=== PATIENT | male | born 1965 | race Caucasian/White ===

== ENCOUNTER 2017-12-28 02:37 | Emergency (ER) | payer SELFPAY ==
[2017-12-28 02:48] VITALS: BP 128/98
--- NOTE | 2017-12-28 03:10 | EDM.PDOC ---
ED HPI GENERAL MEDICAL PROBLEM - General Chief Complaint: General Stated Complaint: ALCOHOL CLEARANCE Time Seen by Provider: 12/28/17 03:00 Source of Information: Reports: Patient, Police - History of Present Illness INITIAL COMMENTS - FREE TEXT/NARRATIVE: Juan is a 52 year old male who presents to the ED with police after he was suspected to be suicidal. A phone call to the suicidal hotline apparently went through on his cell phone, although he reports he does not have his cell phone in his possession. Police later confirmed that the patient did not have possession of his cell phone. Patient is unsure why the police woke him from sleep and brought him here. He reports he was "passed out" when the police broke down his door and told him he had to come to the ED. Police report that they were dispatched to an unknown location. They report they tried to ping the location of the cellphone but it brought them initially to a field and then to other houses with the lights off. They are not positive of who the call came from etc. Patient denies any suicidal or homicidal thoughts or ideation. Reports he has been drinking since early afternoon but he has not been suicidal. He does report he is an alcoholic. He reports on occasion he will call the suicidal hotline late at night when there is no one else to talk to, but he did not call them tonight as he hasn't had his cellphone. He reports he feels fine and has no complaints. Onset: Today Associated Symptoms: Reports: No Other Symptoms Generalized Pain Score (Numeric/FACES): 5 - Related Data Allergies Allergy/AdvReac Type Severity Reaction Status Date / Time ciprofloxacin [From Cipro] AdvReac Intermediate Stomach Verified 12/28/17 02:51 Upset ciprofloxacin HCl AdvReac Intermediate Stomach Verified 12/28/17 02:51 [From Cipro] Upset Home Meds: Home Meds Lisinopril [Prinivil] 20 tab PO DAILY 07/31/15 [History] Past Medical History HEENT History: Reports: Impaired Vision Cardiovascular History: Reports: Hypertension Musculoskeletal History: Reports: Other (See Below) Other Musculoskeletal History: LEFT KNEE PAIN Psychiatric History: Reports: Addiction Other Psychiatric History: daily ETOH - Past Surgical History Musculoskeletal Surgical History: Reports: Other (See Below) Social & Family History - Family History Family Medical History: Unobtainable Cardiac: Reports: Hypertension Endocrine/Metabolic: Reports: Diabetes, type II - Tobacco Use Smoking Status *Q: Unknown Ever Smoked Years of Tobacco use: 35 Packs/Tins Daily: 0.5 - Alcohol Use Days Per Week of Alcohol Use: 7 Number of Drinks Per Day: 12 Total Drinks Per Week: 84 - Recreational Drug Use Recreational Drug Use: No ED ROS GENERAL - Review of Systems Review Of Systems: ROS reveals no pertinent complaints other than HPI. ED EXAM, GENERAL - Physical Exam Exam: See Below Exam Limited By: No Limitations General Appearance: Alert, WD/WN, No Apparent Distress Eye Exam: Bilateral Eye: EOMI, Normal Fundi, Normal Inspection, PERRL Ears: Normal External Exam, Normal Canal, Hearing Grossly Normal, Normal TMs Nose: Normal Inspection, Normal Mucosa, No Blood Throat/Mouth: Normal Inspection, Normal Lips, Normal Teeth, Normal Gums, Normal Oropharynx, Normal Voice, No Airway Compromise Head: Atraumatic, Normocephalic Neck: Normal Inspection, Supple, Non-Tender, Full Range of Motion Respiratory/Chest: No Respiratory Distress, Lungs Clear, Normal Breath Sounds, No Accessory Muscle Use, Chest Non-Tender Cardiovascular: Normal Peripheral Pulses, Regular Rate, Rhythm, No Edema, No Gallop, No JVD, No Murmur, No Rub GI/Abdominal: Normal Bowel Sounds, Soft, Non-Tender, No Organomegaly, No Distention, No Abnormal Bruit, No Mass Extremities: Normal Inspection, Normal Range of Motion, Non-Tender, Normal Capillary Refill, No Pedal Edema Neurological: Alert, Oriented, CN II-XII Intact, Normal Cognition, Normal Gait, Normal Reflexes, No Motor/Sensory Deficits Psychiatric: Normal Affect, Normal Mood Skin Exam: Warm, Dry, Intact, Normal Color, No Rash Course - Vital Signs Last Recorded V/S: Last Vital Signs Temp 97.2 F 12/28/17 02:39 Pulse 118 H 12/28/17 02:39 Resp 18 12/28/17 02:39 BP 128/98 H 12/28/17 02:39 Pulse Ox 98 12/28/17 02:39 - Orders/Labs/Meds Orders: Active Orders 24 hr Category Date Time Status Patient Status Manage Transfer [TRANSFER] Routine ADT 12/28/17 03:20 Ordered Resuscitation Status Routine Resus Stat 12/28/17 03:20 Ordered Labs: Laboratory Tests 03/01/1212/28/17 12/28/17 Range/Units 02:54 02:54 03:00 WBC 9.2 (5.0-10.0) 10^3/uL RBC 4.82 (4.50-6.00) 10^6/uL Hgb 15.2 (14.0-18.0) g/dL Hct 43.5 (40.0-54.0) % MCV 90.2 (82.0-94.0) fL MCH 31.5 (27.0-32.0) pg MCHC 34.9 (33.0-38.0) g/dL RDW Coeff of Cory 12.2 (11.0-15.0) % Plt Count 283 (150-400) 10^3/uL Neut % (Auto) 53.9 (35-85) % Lymph % (Auto) 28.9 (10-55) % Brooke % (Auto) 8.0 (0-16) % Eos % (Auto) 8.8 H (0-5) % Baso % (Auto) 0.4 (0-3) % Neut # (Auto) 4.97 (1.80-7.00) 10^3/uL Lymph # (Auto) 2.66 (1.00-4.80) 10^3/uL Brooke # (Auto) 0.74 (0.00-0.80) 10^3/uL Eos # (Auto) 0.81 H (0.00-0.45) 10^3/uL Baso # (Auto) 0.04 10^3/uL Sodium (136-145) mEq/L Potassium (3.5-5.0) mEq/L Chloride (98-106) mEq/L Carbon Dioxide (21-32) mmol/L BUN (7-18) mg/dL Creatinine (0.7-1.3) mg/dL Est Cr Clr Drug Dosing mL/min Estimated GFR (MDRD) (>=60) mL/min Glucose (75-99) mg/dL Calcium (8.4-10.1) mg/dL Total Bilirubin (0.0-1.0) mg/dL AST (15-37) U/L ALT (12-78) U/L Alkaline Phosphatase (46-116) U/L Total Protein (6.4-8.2) g/dL Albumin (3.4-5.0) g/dL Urine Color Light yellow (YELLOW) Urine Appearance Clear (CLEAR) Urine pH 5.0 (4.5-8.0) Ur Specific Hines <= 1.005 (1.003-1.020) Urine Protein Negative (NEGATIVE) mg/dL Urine Glucose (UA) Negative (NEGATIVE) mg/dL Urine Ketones Negative (NEGATIVE) mg/dL Urine Occult Blood Negative (NEGATIVE) Urine Nitrite Negative (NEGATIVE) Urine Bilirubin Negative (NEGATIVE) Urine Urobilinogen 0.2 (0.2-1.0) EU/dL Ur Leukocyte Esterase Negative (NEGATIVE) Urine RBC Not seen (0-5) /HPF Urine WBC 0-5 (0-5) /HPF Ur Squamous Epith Cells Occasional H (NOT SEEN) /HPF Urine Opiates Screen Negative (NEGATIVE) Ur Oxycodone Screen Negative (NEGATIVE) Urine Methadone Screen Negative (NEGATIVE) Ur Barbiturates Screen Negative (NEGATIVE) U Tricyclic Antidepress Negative (NEGATIVE) Ur Phencyclidine Scrn Negative (NEGATIVE) Ur Amphetamine Screen Negative (NEGATIVE) U Methamphetamines Scrn Negative (NEGATIVE) Urine MDMA Screen Negative (NEGATIVE) U Benzodiazepines Scrn Negative (NEGATIVE) Urine Cocaine Screen Negative (NEGATIVE) U Marijuana (THC) Screen Negative (NEGATIVE) 12/28/17 Range/Units 03:00 WBC (5.0-10.0) 10^3/uL RBC (4.50-6.00) 10^6/uL Hgb (14.0-18.0) g/dL Hct (40.0-54.0) % MCV (82.0-94.0) fL MCH (27.0-32.0) pg MCHC (33.0-38.0) g/dL RDW Coeff of Cory (11.0-15.0) % Plt Count (150-400) 10^3/uL Neut % (Auto) (35-85) % Lymph % (Auto) (10-55) % Brooke % (Auto) (0-16) % Eos % (Auto) (0-5) % Baso % (Auto) (0-3) % Neut # (Auto) (1.80-7.00) 10^3/uL Lymph # (Auto) (1.00-4.80) 10^3/uL Brooke # (Auto) (0.00-0.80) 10^3/uL Eos # (Auto) (0.00-0.45) 10^3/uL Baso # (Auto) 10^3/uL Sodium 137 (136-145) mEq/L Potassium 3.9 (3.5-5.0) mEq/L Chloride 98 (98-106) mEq/L Carbon Dioxide 27 (21-32) mmol/L BUN 22 H D (7-18) mg/dL Creatinine 0.9 (0.7-1.3) mg/dL Est Cr Clr Drug Dosing 91.83 mL/min Estimated GFR (MDRD) > 60 (>=60) mL/min Glucose 106 H D (75-99) mg/dL Calcium 8.8 (8.4-10.1) mg/dL Total Bilirubin 0.5 (0.0-1.0) mg/dL AST 26 (15-37) U/L ALT 45 (12-78) U/L Alkaline Phosphatase 84 (46-116) U/L Total Protein 7.9 (6.4-8.2) g/dL Albumin 4.0 (3.4-5.0) g/dL Urine Color (YELLOW) Urine Appearance (CLEAR) Urine pH (4.5-8.0) Ur Specific Hines (1.003-1.020) Urine Protein (NEGATIVE) mg/dL Urine Glucose (UA) (NEGATIVE) mg/dL Urine Ketones (NEGATIVE) mg/dL Urine Occult Blood (NEGATIVE) Urine Nitrite (NEGATIVE) Urine Bilirubin (NEGATIVE) Urine Urobilinogen (0.2-1.0) EU/dL Ur Leukocyte Esterase (NEGATIVE) Urine RBC (0-5) /HPF Urine WBC (0-5) /HPF Ur Squamous Epith Cells (NOT SEEN) /HPF Urine Opiates Screen (NEGATIVE) Ur Oxycodone Screen (NEGATIVE) Urine Methadone Screen (NEGATIVE) Ur Barbiturates Screen (NEGATIVE) U Tricyclic Antidepress (NEGATIVE) Ur Phencyclidine Scrn (NEGATIVE) Ur Amphetamine Screen (NEGATIVE) U Methamphetamines Scrn (NEGATIVE) Urine MDMA Screen (NEGATIVE) U Benzodiazepines Scrn (NEGATIVE) Urine Cocaine Screen (NEGATIVE) U Marijuana (THC) Screen (NEGATIVE) - Re-Assessments/Exams Free Text/Narrative Re-Assessment/Exam: Discussed labs with patient. Discussed with police that I do not feel they brought the right individual home. He is not actively suicidal. Recommended to them that they go track down the phone to ensure safety of the individual who has possession of Juan's phone. Patient will be kept in extended ED for observation through the night. He does not understand why he has to, but discussed that for his safety we will keep him and give him some IVF. Departure - Departure Time of Disposition: 08:50 Disposition: Home, Self-Care 01 Condition: Good Clinical Impression: Alcohol abuse with intoxication, uncomplicated - Discharge Information Instructions: Alcohol Use Disorder, Substance Use Disorder, Alcohol Intoxication, [id number] Referrals: Provider,Unknown [Primary Care Provider] - Forms: ED Department Discharge Additional Instructions: Call suicidal hotline if any feelings or thoughts of suicide. Safety plan in effect. Push fluids Avoid alcohol as much as possible Recommend counseling or AA Follow up with PCP - My Orders Last 24 Hours: My Active Orders 12/28/17 03:20 Patient Status Manage Transfer [TRANSFER] Routine Resuscitation Status Routine - Assessment/Plan Last 24 Hours: My Active Orders 12/28/17 03:20 Patient Status Manage Transfer [TRANSFER] Routine Resuscitation Status Routine
[2017-12-28 03:20] LABS: CHLORIDE,CL 98 mEq/L (98-106); SODIUM,NA 137 mEq/L (136-145)
== END 2017-12-28 09:05 | disposition home or self-care (01) ==
LOC: CC.ED 02:37
DX: F10.120 Alcohol abuse with intoxication, uncomplicated (principal); I10 Essential (primary) hypertension; E11.9 Type 2 diabetes mellitus without complications; Z88.1 Allergy status to other antibiotic agents; Z79.899 Other long term (current) drug therapy
CPT/HCPCS: 36415; 80053; 80305; 81001; 85025; 99284

== ENCOUNTER 2018-07-30 15:57 | Emergency (ER) | payer SELFPAY ==
[2018-07-30 16:50] LABS: CHLORIDE,CL 96 mEq/L (98-106); SODIUM,NA 133 mEq/L (136-145)
[2018-07-30] MEDS ORDERED: Sodium Chloride 0.9% 1,000 ML IV ONE (16:55)
--- NOTE | 2018-07-30 16:56 | EDM.PDOC ---
ED HPI GENERAL MEDICAL PROBLEM - General Chief Complaint: General Stated Complaint: bilateral foot rash, headache, high blood pressure Time Seen by Provider: 07/30/18 16:28 - History of Present Illness INITIAL COMMENTS - FREE TEXT/NARRATIVE: Juan is a 53 year old male who presents to the ED with c/o neck pain, headache, and elevated blood pressure. He is significantly intoxicated. He reports he has had neck pain for a number of years. Reports he has had a headache for the past 2 weeks. Does report this will stay on blood pressure medications but he does not take them. He is noncompliant. He reports he has been struggling significantly with depression and anxiety following the of one of his best friends a few months ago. He also reports he has been struggling as his girlfriend has been hospitalized and he is unable to be in contact with her. Overall he has numerous complaints all of which are chronic origin. Patient is verbal and does not understand why he is here. He did make an appointment to be seen in the clinic but was very intoxicated and then sent to the emergency room. Onset: Unknown/Unsure Associated Symptoms: Reports: Chest Pain, Headaches. Denies: Confusion, Cough, cough w sputum, Diaphoresis, Fever/Chills, Loss of Appetite, Malaise, Nausea/ Vomiting, Rash, Seizure, Shortness of Breath, Syncope, Weakness Feet Pain Score (Numeric/FACES): 9 - Related Data Allergies Allergy/AdvReac Type Severity Reaction Status Date / Time ciprofloxacin [From Cipro] AdvReac Intermediate Stomach Verified 07/30/18 16:09 Upset ciprofloxacin HCl AdvReac Intermediate Stomach Verified 07/30/18 16:09 [From Cipro] Upset Home Meds: Home Meds FLUoxetine HCl [Prozac] 20 mg PO DAILY #30 capsule 07/30/18 [Rx] Lisinopril 20 mg PO DAILY #90 tablet 07/30/18 [Rx] Past Medical History HEENT History: Reports: Impaired Vision Cardiovascular History: Reports: Hypertension Musculoskeletal History: Reports: Other (See Below) Other Musculoskeletal History: LEFT KNEE PAIN Psychiatric History: Reports: Addiction Other Psychiatric History: daily ETOH - Past Surgical History Musculoskeletal Surgical History: Reports: Other (See Below) Social & Family History - Family History Family Medical History: Unobtainable Cardiac: Reports: Hypertension Endocrine/Metabolic: Reports: Diabetes, type II - Tobacco Use Smoking Status *Q: Current Every Day Smoker Years of Tobacco use: 40 Packs/Tins Daily: 0.5 - Caffeine Use Caffeine Use: Reports: Soda - Alcohol Use Days Per Week of Alcohol Use: 7 Number of Drinks Per Day: 30 Total Drinks Per Week: 210 - Recreational Drug Use Recreational Drug Use: No ED ROS GENERAL - Review of Systems Review Of Systems: ROS reveals no pertinent complaints other than HPI. Constitutional: Denies: Fever, Chills, Weakness, Fatigue HEENT: Reports: No Symptoms Respiratory: Reports: No Symptoms Cardiovascular: Reports: Chest Pain, Blood Pressure Problem. Denies: Dyspnea on Exertion, Edema, Lightheadedness, Palpitations, Syncope Endocrine: Reports: No Symptoms GI/Abdominal: Denies: Abdominal Pain, Black Stool, Bloody Stool, Constipation, Diarrhea, Decreased Appetite, Nausea, Vomiting : Reports: No Symptoms Musculoskeletal: Reports: Neck Pain Skin: Reports: Wound (Bilateral feet) Neurological: Reports: Other (Intoxication) Psychiatric: Reports: Anxiety, Depression. Denies: Suicidal Ideation ED EXAM, GENERAL - Physical Exam Exam: See Below Exam Limited By: Intoxication General Appearance: Alert, WD/WN, No Apparent Distress Eye Exam: Bilateral Eye: EOMI, Nystagmus, PERRL Ears: Normal External Exam, Normal Canal, Hearing Grossly Normal, Normal TMs Nose: Normal Inspection, Normal Mucosa, No Blood Throat/Mouth: Normal Inspection, Normal Lips, Normal Teeth, Normal Gums, Normal Oropharynx, Normal Voice, No Airway Compromise Head: Atraumatic, Normocephalic Neck: Normal Inspection, Supple, Non-Tender, Full Range of Motion. No: Tender Lateral, Tender Midline Respiratory/Chest: No Respiratory Distress, Lungs Clear, Normal Breath Sounds, No Accessory Muscle Use, Chest Non-Tender Cardiovascular: Normal Peripheral Pulses, Regular Rate, Rhythm, No Edema, No Gallop, No JVD, No Murmur, No Rub Peripheral Pulses: 2+: Dorsalis Pedis (L), Dorsalis Pedis (R) GI/Abdominal: Normal Bowel Sounds, Soft, Non-Tender, No Organomegaly, No Distention, No Abnormal Bruit, No Mass Extremities: Normal Range of Motion, Non-Tender, No Pedal Edema, Normal Capillary Refill, Other (Wounds to bilateral feet patient reports these are chronic) Neurological: Alert, Oriented, CN II-XII Intact Psychiatric: Anxious, Depressed Mood, Tearful Skin Exam: Wound/Incision (Bilateral feet). No: Increased Warmth Course - Vital Signs Last Recorded V/S: Last Vital Signs Temp 97 F 07/30/18 16:04 Pulse 98 07/30/18 17:51 Resp 18 07/30/18 16:04 BP 146/80 H 07/30/18 17:51 Pulse Ox 99 07/30/18 16:04 - Orders/Labs/Meds Orders: Active Orders 24 hr Category Date Time Status Cervical Spine 2V or 3V [CR] Stat Exams 07/30/18 16:27 Taken Lisinopril [Prinivil] Med 07/30/18 17:00 Active 20 mg PO DAILY Medication Orders Lisinopril (Prinivil) 20 mg PO DAILY [place] Last Admin: 07/30/18 17:05 Dose: 20 mg Labs: Laboratory Tests 07/30/18 07/30/18 Range/Units 16:28 16:28 WBC 9.4 (5.0-10.0) 10^3/uL RBC 4.28 L (4.50-6.00) 10^6/uL Hgb 14.0 (14.0-18.0) g/dL Hct 40.3 (40.0-54.0) % MCV 94.2 H (82.0-94.0) fL MCH 32.7 H (27.0-32.0) pg MCHC 34.7 (33.0-38.0) g/dL RDW Coeff of Cory 12.3 (11.0-15.0) % Plt Count 353 (150-400) 10^3/uL Neut % (Auto) 65.8 (35-85) % Lymph % (Auto) 21.0 (10-55) % [place] % (Auto) 10.2 (0-16) % Eos % (Auto) 2.3 (0-5) % Baso % (Auto) 0.7 (0-3) % Neut # (Auto) 6.20 (1.80-7.00) 10^3/uL Lymph # (Auto) 1.98 (1.00-4.80) 10^3/uL [place] # (Auto) 0.96 H (0.00-0.80) 10^3/uL Eos # (Auto) 0.22 (0.00-0.45) 10^3/uL Baso # (Auto) 0.07 10^3/uL Sodium 133 L (136-145) mEq/L Potassium 3.9 (3.5-5.0) mEq/L Chloride 96 L (98-106) mEq/L Carbon Dioxide 30 (21-32) mmol/L BUN 9 D (7-18) mg/dL Creatinine 0.9 (0.7-1.3) mg/dL Est Cr Clr Drug Dosing 93.83 mL/min Estimated GFR (MDRD) > 60 (>=60) mL/min Glucose 118 H (75-99) mg/dL Calcium 9.4 (8.4-10.1) mg/dL Total Bilirubin 0.6 (0.0-1.0) mg/dL AST 37 (15-37) U/L ALT 76 (12-78) U/L Alkaline Phosphatase 74 (46-116) U/L Lactate Dehydrogenase 146 (100-190) U/L Creatine Kinase 54 (35-232) U/L Troponin I < 0.017 (0.00-0.06) ng/mL C-Reactive Protein < 0.2 L (0.2-0.8) mg/dL Total Protein 8.2 (6.4-8.2) g/dL Albumin 4.0 (3.4-5.0) g/dL Meds: Medications Generic Name Dose Route Start Last Admin Trade Name Freq PRN Reason Stop Dose Admin Lisinopril 20 mg 07/30/18 17:00 07/30/18 17:05 Prinivil PO 20 mg DAILY [place] Administration Discontinued Medications Generic Name Dose Route Start Last Admin Trade Name Freq PRN Reason Stop Dose Admin Sodium Chloride 1,000 mls @ 999 mls/hr 07/30/18 16:55 07/30/18 17:05 Normal Saline IV 07/30/18 17:55 999 mls/hr .BOLUS ONE Administration - Re-Assessments/Exams Free Text/Narrative Re-Assessment/Exam: Discussed normal lab results with patient. Sodium is slightly low as well as chloride. We'll give one later bolus of normal saline. Long discussion had with patient regarding depression and anxiety. He does report he wishes to be helped with this and treated with medication. I did discuss with him that this would be a medication he would have to take daily and I would take some time for him to notice a difference in his mood. Discussed with patient the importance of taking his blood pressure medications. He has been noncompliant with all this in the past. I did discuss with patient possible transfer for inpatient alcohol and psych treatment to which patient declined immediately. He does report he has been through treatment numerous times in the past for his alcohol addiction. He does report that since the of his best friend he has been struggling much more. He does report that he used to see a psychiatrist about 10 years ago and is interested in starting this again. Discussed with patient that there is a psychologist locally that we could get patient set up with. He does report he is interested in this. C-spine x-ray does reveal degenerative disc disease. Recommend patient follow- up in clinic with primary care provider regarding this. Departure - Departure Time of Disposition: 17:33 Disposition: Home, Self-Care 01 Condition: Good Clinical Impression: Anxiety, Alcohol abuse with intoxication, uncomplicated Hypertension Qualifiers: Hypertension type: essential hypertension Qualified Code(s): I10 - Essential ( primary) hypertension Depression Qualifiers: Depression Type: major depressive disorder Major depression recurrence: recurrent Active/Remission status: currently active Major depression episode severity: severe Psychotic features: without psychotic features Qualified Code(s ): F33.2 - Major depressive disorder, recurrent severe without psychotic features - Discharge Information *PRESCRIPTION DRUG MONITORING PROGRAM REVIEWED*: Not Applicable *COPY OF PRESCRIPTION DRUG MONITORING REPORT IN PATIENT KELL: Not Applicable Prescriptions: FLUoxetine HCl [Prozac] 20 mg PO DAILY #30 capsule Lisinopril 20 mg PO DAILY #90 tablet Instructions: Major Depressive Disorder, Adult, Hypertension, [id number] Referrals: Isiah Mckenna MD [Primary Care Provider] - Forms: ED Department Discharge Additional Instructions: 1) NEED TO TAKE LISINOPRIL DAILY TO MANAGE BLOOD PRESSURE 2) START FLUOXETINE DAILY. THESES MEDICATIONS NEED TO BE TAKEN DAILY. 3) B[facility] MEDICATIONS [facility] AND CAN BE PICKED UP AND STARTED IN THE MORNING. 3) REFERRAL TO DR. BUTTERFIELD (PSYCHOLOGY). CLINIC WILL CALL WITH APPOINTMENT TIME. 4) NEED TO FOLLOW UP WITH DR. MCKENNA NEXT WEEK FOR RECHECK. CLINIC WILL CALL WITH APPOINTMENT TIME. - My Orders Last 24 Hours: My Active Orders 07/30/18 16:27 Cervical Spine 2V or 3V [CR] Stat 07/30/18 17:00 Lisinopril [Prinivil] 20 mg PO DAILY - Assessment/Plan Last 24 Hours: My Active Orders 07/30/18 16:27 Cervical Spine 2V or 3V [CR] Stat 07/30/18 17:00 Lisinopril [Prinivil] 20 mg PO DAILY Plan: Notified clinic nursing staff of the need for referral to Dr. Butterfield. ER visit was after clinic hours so I did also leave a note for clinic nurses to schedule a follow-up appointment with Dr. mckenna next week. I do not feel patient is compliant and needs assistance with these. Also informed patient that both medications were sent to the pharmacy and he is to pick these up and start them in the morning. Discussed importance of managing blood pressure for stroke and cardiac prevention. Also discussed the need to take antidepressant medication daily.
[2018-07-30] MEDS ORDERED: Lisinopril 20 MG Tab PO SCH (17:00)
[2018-07-30 17:52] VITALS: BP 146/80
== END 2018-07-30 18:15 | disposition home or self-care (01) ==
LOC: CC.ED 15:57
DX: F10.120 Alcohol abuse with intoxication, uncomplicated (principal); F41.9 Anxiety disorder, unspecified; F33.2 Major depressive disorder, recurrent severe without psychotic features; I10 Essential (primary) hypertension; F17.210 Nicotine dependence, cigarettes, uncomplicated; R93.7 Abnormal findings on diagnostic imaging of other parts of musculoskeletal system; Z88.1 Allergy status to other antibiotic agents
CPT/HCPCS: 36415; 72040; 80053; 82550; 83615; 84484; 85025; 86140; 93005; 96360; 99284; A9270-GY; J7030

== ENCOUNTER 2019-04-10 20:45 | Emergency (ER) | payer MEDICAID ==
--- NOTE | 2019-04-10 21:02 | EDM.PDOC ---
ED HPI GENERAL MEDICAL PROBLEM - General Chief Complaint: Back Pain or Injury Stated Complaint: left rib pain, vomiting blood Time Seen by Provider: 04/10/19 20:45 Source of Information: Reports: Patient, Family History Limitations: Reports: No Limitations - History of Present Illness INITIAL COMMENTS - FREE TEXT/NARRATIVE: pt to the ED c/o fell a couple of days ago, has pain and bruising to the left lateral chest wall, does c/o some sob, also advised is an alcoholic and has vomited dark blood this afternoon. pt advised he last drank this am at 0900, he denies any unusual neck/back pain or stiffness, no ear/nose/throat sx, no cardiac chest pain, has epigastric abd pain, no black or tarry stool, last BM today was loose and brown. no UTI sx Onset: Other (2 days) Duration: Day(s): (2 days) Location: Reports: Chest (left lateral ribs, lower edge) Quality: Reports: Sharp, Stabbing Severity: Severe Improves with: Reports: None Worsens with: Reports: Breathing Context: Reports: Other (was intoxicated and fell) Associated Symptoms: Reports: Nausea/Vomiting, Shortness of Breath. Denies: Confusion, Chest Pain, Cough, cough w sputum, Diaphoresis, Fever/Chills, Headaches, Rash, Seizure, Syncope, Weakness Treatments COVERSTITCH BINDER: Reports: Other (see below) (none) Left Thoracic Pain Score (Numeric/FACES): 8 - Related Data Allergies Allergy/AdvReac Type Severity Reaction Status Date / Time ciprofloxacin [From Cipro] AdvReac Intermediate Stomach Verified 04/10/19 20:49 Upset ciprofloxacin HCl AdvReac Intermediate Stomach Verified 04/10/19 20:49 [From Cipro] Upset Home Meds: Home Meds Lisinopril 20 mg PO DAILY #90 tablet 07/30/18 [Rx] hydrOXYzine HCl [hydrOXYzine] 50 mg PO DAILY 04/10/19 [History] Past Medical History HEENT History: Reports: Impaired Vision Cardiovascular History: Reports: Hypertension Musculoskeletal History: Reports: Other (See Below) Other Musculoskeletal History: LEFT KNEE PAIN Psychiatric History: Reports: Addiction Other Psychiatric History: daily ETOH - Past Surgical History Musculoskeletal Surgical History: Reports: Other (See Below) Social & Family History - Family History Family Medical History: Unobtainable Cardiac: Reports: Hypertension Endocrine/Metabolic: Reports: Diabetes, type II - Caffeine Use Caffeine Use: Reports: Soda - Alcohol Use Alcohol Use History: Yes Alcohol Use in Last Twelve Months: Yes Alcohol Use Frequency: Daily - Living Situation & Occupation Living situation: Reports: with Family ED ROS GENERAL - Review of Systems Review Of Systems: See Below Constitutional: Denies: Fever, Chills, Weakness HEENT: Reports: No Symptoms Respiratory: Reports: No Symptoms. Denies: Shortness of Breath Cardiovascular: Reports: No Symptoms, Chest Pain (left chest wall pain). Denies : Dyspnea on Exertion, Edema Endocrine: Reports: No Symptoms GI/Abdominal: Reports: Abdominal Pain (epigastric pain), Decreased Appetite, Hematemesis, Vomiting. Denies: Black Stool, Melena : Reports: No Symptoms Musculoskeletal: Reports: No Symptoms. Denies: Neck Pain, Back Pain Skin: Reports: No Symptoms Neurological: Reports: No Symptoms Psychiatric: Reports: No Symptoms Hematologic/Lymphatic: Reports: No Symptoms Immunologic: Reports: No Symptoms ED EXAM, GI/ABD - Physical Exam Exam: See Below Exam Limited By: No Limitations General Appearance: Alert, WD/WN, Thin Eyes: Bilateral: Normal Appearance Ears: Normal External Exam Nose: Normal Inspection, Normal Mucosa Throat/Mouth: Normal Inspection, Normal Lips, Normal Oropharynx, Normal Voice, No Airway Compromise Head: Atraumatic, Normocephalic Neck: Normal Inspection, Supple, Non-Tender, Full Range of Motion Respiratory/Chest: No Respiratory Distress, Lungs Clear, Normal Breath Sounds Cardiovascular: Normal Peripheral Pulses, Regular Rate, Rhythm, No Murmur GI/Abdominal Exam: Normal Bowel Sounds, Soft, Tender (epigastric tenderness with palpation) Rectal (Males) Exam: Other (refusing rectal exam, advised R/B still refusing) Back Exam: Normal Inspection Extremities: Normal Inspection, Normal Range of Motion, Non-Tender, No Pedal Edema, Normal Capillary Refill Neurological: Alert, Oriented, No Motor/Sensory Deficits Psychiatric: Anxious Skin Exam: Warm, Dry, Intact, Normal Color, Ecchymosis (left lower lateral ribs) Course - Vital Signs Last Recorded V/S: Last Vital Signs Temp 36.8 C 04/10/19 23:23 Pulse 97 04/10/19 23:23 Resp 20 04/10/19 23:23 BP 98/64 04/10/19 23:23 Pulse Ox 97 04/10/19 23:23 - Orders/Labs/Meds Orders: Active Orders 24 hr Category Date Time Status Chest w Cont [CT] Stat Exams 04/10/19 21:13 Taken OCCULT BLOOD SCREEN [OP] Stat Lab 04/10/19 21:14 Ordered Sodium Chloride 0.9% [Normal Saline] 1,000 ml Med 04/10/19 23:00 Active IV ASDIRECTED Medication Orders Sodium Chloride (Normal Saline) 1,000 mls @ 150 mls/hr IV ASDIRECTED CLIFTON Last Admin: 04/10/19 22:59 Dose: 150 mls/hr Labs: Laboratory Tests 04/10/19 04/10/19 04/10/19 Range/Units 21:18 21:18 21:18 WBC 18.1 H (5.0-10.0) 10^3/uL RBC 4.45 L (4.50-6.00) 10^6/uL Hgb 14.2 (14.0-18.0) g/dL Hct 40.1 (40.0-54.0) % MCV 90.1 (82.0-94.0) fL MCH 31.9 (27.0-32.0) pg MCHC 35.4 (33.0-38.0) g/dL RDW Coeff of Cory 12.6 (11.0-15.0) % Plt Count 421 H (150-400) 10^3/uL Neut % (Auto) 80.5 (35-85) % Lymph % (Auto) 11.1 (10-55) % [place] % (Auto) 8.1 (0-16) % Eos % (Auto) 0.1 (0-5) % Baso % (Auto) 0.2 (0-3) % Neut # (Auto) 14.56 H (1.80-7.00) 10^3/uL Lymph # (Auto) 2.01 (1.00-4.80) 10^3/uL [place] # (Auto) 1.47 H (0.00-0.80) 10^3/uL Eos # (Auto) 0.01 (0.00-0.45) 10^3/uL Baso # (Auto) 0.03 10^3/uL Sodium 134 L (136-145) mEq/L Potassium 4.2 (3.5-5.0) mEq/L Chloride 94 L (98-106) mEq/L Carbon Dioxide 28 (21-32) mmol/L BUN 13 (7-18) mg/dL Creatinine 1.5 H D (0.7-1.3) mg/dL Est Cr Clr Drug Dosing 53.83 mL/min Estimated GFR (MDRD) 49 L (>=60) mL/min Glucose 100 H (75-99) mg/dL Calcium 9.9 (8.4-10.1) mg/dL Total Bilirubin 1.3 H (0.0-1.0) mg/dL AST 33 (15-37) U/L ALT 52 (12-78) U/L Alkaline Phosphatase 59 (46-116) U/L Troponin I < 0.017 (0.00-0.06) ng/mL Total Protein 7.2 (6.4-8.2) g/dL Albumin 3.9 (3.4-5.0) g/dL Lipase 407 H (73-393) U/L Urine Color (YELLOW) Urine Appearance (CLEAR) Urine pH (4.5-8.0) Ur Specific [place] (1.003-1.020) Urine Protein (NEGATIVE) mg/dL Urine Glucose (UA) (NEGATIVE) mg/dL Urine Ketones (NEGATIVE) mg/dL Urine Occult Blood (NEGATIVE) Urine Nitrite (NEGATIVE) Urine Bilirubin (NEGATIVE) Urine Urobilinogen (0.2-1.0) EU/dL Ur Leukocyte Esterase (NEGATIVE) Urine RBC (0-5) /HPF Urine WBC (0-5) /HPF Ur Squamous Epith Cells (NOT SEEN) /HPF Urine Bacteria (NOT SEEN) /HPF Hyaline Casts (NOT SEEN) /LPF Granular Casts (NOT SEEN) /LPF Urine Mucus (NOT SEEN) /HPF 04/10/19 Range/Units 21:35 WBC (5.0-10.0) 10^3/uL RBC (4.50-6.00) 10^6/uL Hgb (14.0-18.0) g/dL Hct (40.0-54.0) % MCV (82.0-94.0) fL MCH (27.0-32.0) pg MCHC (33.0-38.0) g/dL RDW Coeff of Cory (11.0-15.0) % Plt Count (150-400) 10^3/uL Neut % (Auto) (35-85) % Lymph % (Auto) (10-55) % [place] % (Auto) (0-16) % Eos % (Auto) (0-5) % Baso % (Auto) (0-3) % Neut # (Auto) (1.80-7.00) 10^3/uL Lymph # (Auto) (1.00-4.80) 10^3/uL [place] # (Auto) (0.00-0.80) 10^3/uL Eos # (Auto) (0.00-0.45) 10^3/uL Baso # (Auto) 10^3/uL Sodium (136-145) mEq/L Potassium (3.5-5.0) mEq/L Chloride (98-106) mEq/L Carbon Dioxide (21-32) mmol/L BUN (7-18) mg/dL Creatinine (0.7-1.3) mg/dL Est Cr Clr Drug Dosing mL/min Estimated GFR (MDRD) (>=60) mL/min Glucose (75-99) mg/dL Calcium (8.4-10.1) mg/dL Total Bilirubin (0.0-1.0) mg/dL AST (15-37) U/L ALT (12-78) U/L Alkaline Phosphatase (46-116) U/L Troponin I (0.00-0.06) ng/mL Total Protein (6.4-8.2) g/dL Albumin (3.4-5.0) g/dL Lipase (73-393) U/L Urine Color Yellow (YELLOW) Urine Appearance Slightly cloudy (CLEAR) Urine pH 5.0 (4.5-8.0) Ur Specific [place] 1.020 (1.003-1.020) Urine Protein >=300 H (NEGATIVE) mg/dL Urine Glucose (UA) Negative (NEGATIVE) mg/dL Urine Ketones Trace H (NEGATIVE) mg/dL Urine Occult Blood Negative (NEGATIVE) Urine Nitrite Negative (NEGATIVE) Urine Bilirubin Negative (NEGATIVE) Urine Urobilinogen 0.2 (0.2-1.0) EU/dL Ur Leukocyte Esterase Negative (NEGATIVE) Urine RBC Not seen (0-5) /HPF Urine WBC 0-5 (0-5) /HPF Ur Squamous Epith Cells Occasional H (NOT SEEN) /HPF Urine Bacteria Few H (NOT SEEN) /HPF Hyaline Casts Few H (NOT SEEN) /LPF Granular Casts Few (NOT SEEN) /LPF Urine Mucus Few H (NOT SEEN) /HPF Meds: Medications Generic Name Dose Route Start Last Admin Trade Name Freq PRN Reason Stop Dose Admin Sodium Chloride 1,000 mls @ 150 mls/hr 04/10/19 23:00 04/10/19 22:59 Normal Saline IV 150 mls/hr ASDIRECTED CL[place]ON Administration Discontinued Medications Generic Name Dose Route Start Last Admin Trade Name Freq PRN Reason Stop Dose Admin Iopamidol 100 ml 04/10/19 21:29 04/10/19 22:32 Isovue-370 (76%) IVPUSH 04/10/19 21:30 100 ml ONETIME ONE Administration Morphine Sulfate 4 mg 04/10/19 22:22 04/10/19 22:54 Morphine IVPUSH 04/10/19 22:23 4 mg ONETIME ONE Administration Ondansetron HCl 4 mg 04/10/19 21:47 04/10/19 21:49 Zofran IVPUSH 04/10/19 21:48 4 mg ONETIME ONE Administration Ondansetron HCl Confirm 04/10/19 21:35 04/10/19 21:51 Zofran Administered 04/10/19 21:36 Not Given Dose 4 mg .ROUTE .STK-MED ONE Pantoprazole Sodium 80 mg 04/10/19 22:57 04/10/19 23:10 Protonix Iv IVPUSH 04/10/19 22:58 80 mg ONETIME ONE Administration Departure - Departure Time of Disposition: 23:23 Disposition: DC/Tfer to Acute Hospital 02 Condition: Good Clinical Impression: Pancreatitis, Contusion of left chest wall, Alcoholism, Leukocytosis - Discharge Information *PRESCRIPTION DRUG MONITORING PROGRAM REVIEWED*: Not Applicable *COPY OF PRESCRIPTION DRUG MONITORING REPORT IN PATIENT KELL: Not Applicable Referrals: PCP,None [Primary Care Provider] - Forms: ED Department Discharge Care Plan Goals: transfer to [facility] for further evaluation and tx ED Communication - Conversation Summary Summary Comment: [id number] 12 lead EKG has a wandering baseline, it is concerning for minimal ST elevaton in leads II, III, and AVF, I called and spoke to Zoe in the transfer center at [facility], the EKG has been faxed to her and she will have the supervisor cleaning and annealing review the EKG and call me back. the pt denies CP, trop is normal. 2250 I called [facility] back and spoke back to Zoe and request transfer for pancreatitis and possible Upper GI bleed, the pt does appear to be intoxicated, CT chest with IV contrast completed and radiology reading is pending. Pt given NS 1 liter bolus, protonix 80mg IVP, zofran 4mg IV and morphine 4mg IVP for rib pain. 2214 Z[facility] called back, advied that Dr. Winkler the supervisor cleaning and annealing reviewed the EKG and she is not concerned for a STEMI, will continue with my tx plan. 2318 [facility] in [place] called back as the pt does have pancreatitis, elevated WBC and possible upper GI bleed, I spoke back with Zoe and she will get the hospitaist and call me back. [address] Almaguer and she will acceptthe pt, see the nursing notes for details of the transfer - Problem List & Annotations (1) ETOH abuse SNOMED Code(s): 80547435 Code(s): F10.10 - ALCOHOL ABUSE, UNCOMPLICATED Status: Chronic Priority: High Current Visit: No (2) Alcoholism SNOMED Code(s): 5298319 Code(s): F10.20 - ALCOHOL DEPENDENCE, UNCOMPLICATED Status: Chronic Priority: High Current Visit: Yes Onset Date: 02/25/16 (3) Contusion of left chest wall SNOMED Code(s): 91547442464180638 Code(s): S20.212A - CONTUSION OF LEFT FRONT WALL OF THORAX, INITIAL ENCOUNTER Status: Acute Priority: High Current Visit: Yes Qualifiers: Encounter type: initial encounter Qualified Code(s): S20.212A - Contusion of left front wall of thorax, initial encounter (4) Leukocytosis SNOMED Code(s): 831058712, 960181683 Code(s): D72.829 - ELEVATED WHITE BLOOD CELL COUNT, UNSPECIFIED Status: Acute Priority: High Current Visit: Yes (5) Pancreatitis SNOMED Code(s): 42930605 Code(s): K85.90 - ACUTE PANCREATITIS WITHOUT NECROSIS OR INFECTION, UNSP Status: Acute Priority: High Current Visit: Yes Qualifiers: Chronicity: acute Pancreatitis type: alcohol induced - Problem List Review Problem List Initiated/Reviewed/Updated: Yes - My Orders Last 24 Hours: My Active Orders 04/10/19 21:13 Chest w Cont [CT] Stat 04/10/19 21:14 OCCULT BLOOD SCREEN [OP] Stat 04/10/19 23:00 Sodium Chloride 0.9% [Normal Saline] 1,000 ml IV ASDIRECTED - Assessment/Plan Last 24 Hours: My Active Orders 04/10/19 21:13 Chest w Cont [CT] Stat 04/10/19 21:14 OCCULT BLOOD SCREEN [OP] Stat 04/10/19 23:00 Sodium Chloride 0.9% [Normal Saline] 1,000 ml IV ASDIRECTED
[2019-04-10] MEDS ORDERED: Iopamidol 755 Mg/ML 100 ML Bottle IVPUSH ONE (21:29)
[2019-04-10] MEDS ORDERED: Ondansetron 4 MG/2 ML SDV ONE (21:35)
[2019-04-10] MEDS ORDERED: Ondansetron 4 MG/2 ML SDV IVPUSH ONE (21:47)
[2019-04-10] MEDS ORDERED: Morphine 4 MG/ML Syringe IVPUSH ONE (22:22)
[2019-04-10] MEDS ORDERED: Pantoprazole 40 MG Vial IVPUSH ONE (22:57)
[2019-04-10] MEDS ORDERED: Sodium Chloride 0.9% 1,000 ML IV SCH (23:00)
[2019-04-10 23:26] VITALS: BP 98/64
== END 2019-04-11 00:19 ==
LOC: CC.ED 20:45
DX: S20.212A Contusion of left front wall of thorax, initial encounter (principal); K85.90 Acute pancreatitis without necrosis or infection, unspecified; F10.229 Alcohol dependence with intoxication, unspecified; D72.829 Elevated white blood cell count, unspecified; I10 Essential (primary) hypertension; Z88.1 Allergy status to other antibiotic agents; Z79.899 Other long term (current) drug therapy; W19.XXXA Unspecified fall, initial encounter
CPT/HCPCS: 36415; 71260; 80053; 81001; 83690; 84484; 85025; 93005; 96361; 96374; 96375; 99285-25; C9113; J2270; J2405; J7030; Q9967

== ENCOUNTER 2019-06-11 21:25 | Emergency (ER) | payer MEDICAID ==
[2019-06-11] MEDS ORDERED: chlorproMAZINE 50 MG/2 ML Amp ONE (21:37)
[2019-06-11] MEDS ORDERED: chlorproMAZINE 50 MG/2 ML Amp IM ONE (21:53)
--- NOTE | 2019-06-11 21:53 | EDM.PDOC ---
ED HPI GENERAL MEDICAL PROBLEM - General Chief Complaint: General Stated Complaint: hiccups Time Seen by Provider: 06/11/19 21:38 Source of Information: Reports: Patient History Limitations: Reports: Intoxication - History of Present Illness INITIAL COMMENTS - FREE TEXT/NARRATIVE: Pt presents with hiccoughs. He states that they started weeks ago and they keep him awake. He has been treated with other meds in the past but he doesn't remember what they were. the paper that the girlfriend brought in says zantac and omeprazole. Discussed that these were for the stomach ulcer that he was treated for and not the hiccups. States that they helped and he ran out of the omeprazole. Did take the zantac earlier. Denies any other concerns tonight. Onset: Gradual Duration: Week(s): - Related Data Allergies Allergy/AdvReac Type Severity Reaction Status Date / Time ciprofloxacin [From Cipro] AdvReac Intermediate Stomach Verified 06/11/19 21:30 Upset ciprofloxacin HCl AdvReac Intermediate Stomach Verified 06/11/19 21:30 [From Cipro] Upset Home Meds: Home Meds Lisinopril 20 mg PO DAILY #90 tablet 07/30/18 [Rx] Ranitidine HCl [Ranitidine] 300 mg PO DAILY 06/11/19 [History] Past Medical History HEENT History: Reports: Impaired Vision Cardiovascular History: Reports: Hypertension Respiratory History: Reports: SOB Musculoskeletal History: Reports: Other (See Below) Other Musculoskeletal History: LEFT KNEE PAIN Neurological History: Reports: Concussion Psychiatric History: Reports: Addiction, Anxiety, Depression, Emotional Problems Other Psychiatric History: daily ETOH Dermatologic History: Reports: Eczema - Past Surgical History Respiratory Surgical History: Reports: None Neurological Surgical History: Reports: None Musculoskeletal Surgical History: Reports: Other (See Below) Social & Family History - Family History Family Medical History: Unobtainable Cardiac: Reports: Hypertension Endocrine/Metabolic: Reports: Diabetes, type II - Tobacco Use Packs/Tins Daily: 0.3 - Caffeine Use Caffeine Use: Reports: None - Alcohol Use Days Per Week of Alcohol Use: 7 Number of Drinks Per Day: 15 Total Drinks Per Week: 105 - Recreational Drug Use Recreational Drug Use: No - Living Situation & Occupation Living situation: Reports: with Family ED ROS GENERAL - Review of Systems Review Of Systems: See Below Constitutional: Denies: Fever, Chills GI/Abdominal: Reports: Nausea, Other (see HPI). Denies: Hematemesis, Hematochezia ED EXAM, GENERAL - Physical Exam Exam: See Below Exam Limited By: No Limitations General Appearance: Alert, WD/WN Respiratory/Chest: No Respiratory Distress, Lungs Clear, Normal Breath Sounds Cardiovascular: Regular Rate, Rhythm, No Edema GI/Abdominal: Normal Bowel Sounds, Soft Extremities: Normal Inspection, Normal Capillary Refill Neurological: Alert, Oriented Skin Exam: Warm, Dry, Intact Course - Vital Signs Last Recorded V/S: Last Vital Signs Temp 98.4 F 06/11/19 21:25 Pulse 98 06/11/19 21:25 Resp 20 06/11/19 21:25 BP 173/103 H 06/11/19 21:25 Pulse Ox 100 06/11/19 21:25 - Orders/Labs/Meds Meds: Medications Discontinued Medications Generic Name Dose Route Start Last Admin Trade Name Jacy PRN Reason Stop Dose Admin Chlorpromazine HCl Confirm 06/11/19 21:37 06/11/19 21:55 Thorazine Administered 06/11/19 21:38 Not Given Dose 50 mg .ROUTE .STK-MED ONE Chlorpromazine HCl 50 mg 06/11/19 21:53 06/11/19 21:55 Thorazine IM 06/11/19 21:54 50 mg ONETIME ONE Administration Departure - Departure Time of Disposition: 22:13 Disposition: Home, Self-Care 01 Condition: Good Clinical Impression: Hiccups, ETOH abuse - Discharge Information *PRESCRIPTION DRUG MONITORING PROGRAM REVIEWED*: Not Applicable *COPY OF PRESCRIPTION DRUG MONITORING REPORT IN PATIENT KELL: Not Applicable Forms: ED Department Discharge Additional Instructions: take your BP meds daily- lisinopril go to store and get your omeprazole 20 mg and take with the ranitidine (you have this in your pocket) follow up with your provider in [place] if not improving Go home and try to go to sleep - Problem List & Annotations (1) Hiccups SNOMED Code(s): 70412256 Code(s): R06.6 - HICCOUGH Status: Acute Priority: High Current Visit: Yes (2) ETOH abuse SNOMED Code(s): 34683470 Code(s): F10.10 - ALCOHOL ABUSE, UNCOMPLICATED Status: Chronic Priority: High Current Visit: Yes - Problem List Review Problem List Initiated/Reviewed/Updated: Yes
[2019-06-11] MEDS ORDERED: Pantoprazole 40 MG Tab.CR PO STA (22:04)
[2019-06-11 22:10] VITALS: BP 145/89
== END 2019-06-11 22:22 | disposition home or self-care (01) ==
LOC: CC.ED 21:25
DX: R06.6 Hiccough (principal); F10.129 Alcohol abuse with intoxication, unspecified; I10 Essential (primary) hypertension; F41.9 Anxiety disorder, unspecified; F32.9 Major depressive disorder, single episode, unspecified; F17.210 Nicotine dependence, cigarettes, uncomplicated; Z88.1 Allergy status to other antibiotic agents; Z79.899 Other long term (current) drug therapy
CPT/HCPCS: 96372; 99283; A9270; J3230

== ENCOUNTER 2019-08-30 10:25 | Inpatient (IN) | payer MEDICAID ==
[2019-08-30] MEDS ORDERED: Famotidine 20 MG/2 ML SDV IVPUSH ONE (10:34)
[2019-08-30] MEDS ORDERED: Pantoprazole 40 MG Vial IVPUSH ONE (10:37)
--- NOTE | 2019-08-30 10:42 | EDM.PDOC ---
ED HPI GENERAL MEDICAL PROBLEM - General Chief Complaint: General Stated Complaint: nausea, burping, hiccups, vomiting Time Seen by Provider: 08/30/19 10:32 Source of Information: Reports: Patient History Limitations: Reports: No Limitations - History of Present Illness INITIAL COMMENTS - FREE TEXT/NARRATIVE: This patient is a 54 year old male that presents to the ER. Patient is known to staff. Patient reports for 2 days having abdominal pain in the epigastric region and all over. Patient reports the pain comes and goes. He reports the pain is worse after eating or drinking. Patient reports that he does have nausea with it and he has vomited a couple of times a yellow color. Patient reports that he drinks about 15 beers or more a day. patient has been scheduled for EGD twice the past couple of weeks, but has cancelled each time. Patient reports that he had those scheduled because he has had some nausea and mild epigastric pain/abd pain for the last month. Onset Date: 08/28/19 Duration: Day(s): (2) Location: Reports: Abdomen Quality: Reports: Burning Severity: Moderate Improves with: Reports: None Worsens with: Reports: None Associated Symptoms: Reports: Loss of Appetite, Nausea/Vomiting, Shortness of Breath. Denies: Confusion, Chest Pain, Cough, cough w sputum, Diaphoresis, Fever/Chills, Headaches, Malaise, Rash, Seizure, Syncope, Weakness - Related Data Allergies Allergy/AdvReac Type Severity Reaction Status Date / Time diphenhydramine Allergy Cannot Verified 08/30/19 10:31 [From Benadryl] Remember ciprofloxacin [From Cipro] AdvReac Intermediate Stomach Verified 08/30/19 10:31 Upset ciprofloxacin HCl AdvReac Intermediate Stomach Verified 08/30/19 10:31 [From Cipro] Upset Home Meds: Home Meds Lisinopril 20 mg PO DAILY #90 tablet 07/30/18 [Rx] hydrOXYzine HCl [Hydroxyzine HCl] 50 mg PO TID PRN 08/04/19 [History] Past Medical History HEENT History: Reports: Impaired Vision Cardiovascular History: Reports: Hypertension Respiratory History: Reports: SOB Musculoskeletal History: Reports: Other (See Below) Other Musculoskeletal History: LEFT KNEE PAIN Neurological History: Reports: Concussion Psychiatric History: Reports: Addiction, Anxiety, Depression, Emotional Problems Other Psychiatric History: daily ETOH Dermatologic History: Reports: Eczema - Past Surgical History Respiratory Surgical History: Reports: None Neurological Surgical History: Reports: None Musculoskeletal Surgical History: Reports: Other (See Below) Social & Family History - Family History Family Medical History: Unobtainable Cardiac: Reports: Hypertension Endocrine/Metabolic: Reports: Diabetes, type II - Caffeine Use Caffeine Use: Reports: None - Living Situation & Occupation Living situation: Reports: with Family ED ROS GENERAL - Review of Systems Review Of Systems: See Below Constitutional: Reports: Decreased Appetite HEENT: Reports: No Symptoms Respiratory: Reports: Shortness of Breath (with pain) Cardiovascular: Reports: No Symptoms Endocrine: Reports: No Symptoms GI/Abdominal: Reports: Abdominal Pain, Decreased Appetite, Nausea, Vomiting. Denies: Black Stool, Bloody Stool, Hematemesis : Reports: No Symptoms Musculoskeletal: Reports: No Symptoms Skin: Reports: No Symptoms Neurological: Reports: No Symptoms Psychiatric: Reports: No Symptoms Hematologic/Lymphatic: Reports: No Symptoms Immunologic: Reports: No Symptoms ED EXAM, GENERAL - Physical Exam Exam: See Below Exam Limited By: No Limitations General Appearance: Alert, WD/WN, No Apparent Distress, Anxious Eye Exam: Bilateral Eye: Normal Inspection, PERRL Ears: Normal External Exam, Normal Canal, Hearing Grossly Normal, Normal TMs Ear Exam: Bilateral Ear: Auricle Normal, Canal Normal, TM normal Nose: Normal Inspection, Normal Mucosa, No Blood Throat/Mouth: Normal Inspection, Normal Lips, Normal Teeth, Normal Gums, Normal Oropharynx, Normal Voice, No Airway Compromise Head: Atraumatic, Normocephalic Neck: Normal Inspection, Supple, Non-Tender, Full Range of Motion Respiratory/Chest: No Respiratory Distress, Lungs Clear, Normal Breath Sounds, No Accessory Muscle Use, Chest Non-Tender Cardiovascular: Normal Peripheral Pulses, Regular Rate, Rhythm, No Edema, No Gallop, No JVD, No Murmur, No Rub Peripheral Pulses: 2+: Radial (L), Radial (R), Posterior Tibial (L), Posterior Tibial (R), Dorsalis Pedis (L), Dorsalis Pedis (R) GI/Abdominal: Normal Bowel Sounds, Soft, No Organomegaly, No Distention, No Abnormal Bruit, No Mass, Pelvis Stable, Tender (mild diffuse) (Male) Exam: Deferred Rectal (Males) Exam: Deferred Back Exam: Normal Inspection, Full Range of Motion. No: CVA Tenderness (L), CVA Tenderness (R) Extremities: Normal Inspection, Normal Range of Motion, Non-Tender, No Pedal Edema, Normal Capillary Refill Neurological: Alert, Oriented, Normal Cognition, Normal Gait, No Motor/Sensory Deficits Psychiatric: Anxious Skin Exam: Warm, Dry, Intact, Normal Color, No Rash Lymphatic: No Adenopathy Course - Vital Signs Last Recorded V/S: Last Vital Signs Temp 98.4 F 08/30/19 13:58 Pulse 89 08/30/19 13:58 Resp 20 08/30/19 13:58 BP 130/99 H 08/30/19 13:58 Pulse Ox 99 08/30/19 13:58 - Orders/Labs/Meds Orders: Active Orders 24 hr Category Date Time Status Abdomen Pelvis wo Cont [CT] Stat Exams 08/30/19 11:09 Taken Labs: Laboratory Tests 08/30/19 08/30/19 08/30/19 Range/Units 10:35 10:35 13:00 WBC 16.0 H (5.0-10.0) 10^3/uL RBC 5.51 (4.50-6.00) 10^6/uL Hgb 16.1 (14.0-18.0) g/dL Hct 47.5 (40.0-54.0) % MCV 86.2 (82.0-94.0) fL MCH 29.2 (27.0-32.0) pg MCHC 33.9 (33.0-38.0) g/dL RDW Coeff of Cory 14.5 (11.0-15.0) % Plt Count 476 H (150-400) 10^3/uL Neut % (Auto) 80.0 (35-85) % Lymph % (Auto) 12.3 (10-55) % [place] % (Auto) 7.6 (0-16) % Eos % (Auto) 0.1 (0-5) % Baso % (Auto) 0 (0-3) % Neut # (Auto) 12.81 H (1.80-7.00) 10^3/uL Lymph # (Auto) 1.96 (1.00-4.80) 10^3/uL [place] # (Auto) 1.21 H (0.00-0.80) 10^3/uL Eos # (Auto) 0.01 (0.00-0.45) 10^3/uL Baso # (Auto) 0.00 10^3/uL Sodium 139 (136-145) mEq/L Potassium 3.8 (3.5-5.0) mEq/L Chloride 97 L (98-106) mEq/L Carbon Dioxide 26 (21-32) mmol/L BUN 24 H D (7-18) mg/dL Creatinine 2.0 H D (0.7-1.3) mg/dL Est Cr Clr Drug Dosing TNP Estimated GFR (MDRD) 35 L (>=60) mL/min Glucose 185 H D (75-99) mg/dL Calcium 9.8 (8.4-10.1) mg/dL Total Bilirubin 3.2 H (0.0-1.0) mg/dL AST 24 (15-37) U/L ALT 40 (12-78) U/L Alkaline Phosphatase 74 (46-116) U/L Total Protein 7.7 (6.4-8.2) g/dL Albumin 3.8 (3.4-5.0) g/dL Amylase 55 (25-115) U/L Lipase 306 (73-393) U/L Urine Color Dark yellow (YELLOW) Urine Appearance Slightly cloudy (CLEAR) Urine pH 5.5 (4.5-8.0) Ur Specific [place] >= 1.030 H (1.003-1.020) Urine Protein 100 H (NEGATIVE) mg/dL Urine Glucose (UA) Negative (NEGATIVE) mg/dL Urine Ketones 15 H (NEGATIVE) mg/dL Urine Occult Blood Negative (NEGATIVE) Urine Nitrite Positive H (NEGATIVE) Urine Bilirubin Large H (NEGATIVE) Urine Urobilinogen 1.0 (0.2-1.0) EU/dL Ur Leukocyte Esterase Negative (NEGATIVE) Urine RBC 0-5 (0-5) /HPF Urine WBC Not seen (0-5) /HPF Ur Epithelial Cells Few H (NOT SEEN) /HPF Hyaline Casts Many H (NOT SEEN) /LPF Ethyl Alcohol < 3 (0-3) mg/dL Meds: Medications Discontinued Medications Generic Name Dose Route Start Last Admin Trade Name Freq PRN Reason Stop Dose Admin Famotidine 20 mg 08/30/19 10:34 Pepcid IVPUSH 08/30/19 10:35 ONETIME ONE Sodium Chloride 1,000 mls @ 1,000 mls/hr 08/30/19 11:10 08/30/19 11:35 Normal Saline IV 08/30/19 12:09 1,000 mls/hr .BOLUS ONE Administration Pantoprazole Sodium 80 mg 08/30/19 10:37 08/30/19 11:01 Protonix Iv IVPUSH 08/30/19 10:38 80 mg ONETIME ONE Administration - Radiology Interpretation Free Text/Narrative:: ct abd pelvis: radiologist discussed: fatty liver, ascites in pelvis. CT Results Date: 08/30/19 Departure - Departure Time of Disposition: 15:20 Disposition: Admitted As Inpatient 65 Condition: Fair Clinical Impression: ETOH abuse, Alcoholism, Hiccups, UTI, Urinary tract infectious disease, Renal insufficiency Ascites Qualifiers: Ascites type: other type Qualified Code(s): R18.8 - Other ascites - Discharge Information *PRESCRIPTION DRUG MONITORING PROGRAM REVIEWED*: Not Applicable *COPY OF PRESCRIPTION DRUG MONITORING REPORT IN PATIENT KELL: Not Applicable - My Orders Last 24 Hours: My Active Orders 08/30/19 11:09 Abdomen Pelvis wo Cont [CT] Stat - Assessment/Plan Last 24 Hours: My Active Orders 08/30/19 11:09 Abdomen Pelvis wo Cont [CT] Stat Plan: PLEASE SEE RN NOTE FOR PFSH. PLEASE USE ER H&P ADMIT H&P.
[2019-08-30 10:56] LABS: CHLORIDE,CL 97 mEq/L (98-106); SODIUM,NA 139 mEq/L (136-145)
[2019-08-30] MEDS ORDERED: Sodium Chloride 0.9% 1,000 ML IV ONE (11:10)
[2019-08-30] MEDS ORDERED: Sodium Chloride 0.9% 1,000 ML IV SCH (16:21)
[2019-08-30] MEDS ORDERED: MVI, Adult with Vitamin K 10 ML, Folic Acid 1 MG, Thiamine 100 MG, Magnesium Sulfate 2 ... IV ONE ×5 (16:21)
[2019-08-30] MEDS ORDERED: LORazepam 2 MG/ML Syringe IVPUSH PRN (16:21)
[2019-08-30] MEDS: cefTRIAXone 1 GM Vial IVPUSH SCH (16:52)
[2019-08-31 07:50] LABS: CHLORIDE,CL 102 mEq/L (98-106); SODIUM,NA 138 mEq/L (136-145)
--- NOTE | 2019-08-31 12:05 | PCM.PN ---
- General Info Date of Service: 08/31/19 Admission Dx/Problem (Free Text): Abdominal Pain Renal Insufficiency Ascites UTI Functional Status: Reports: Pain Controlled, Tolerating Diet, Ambulating - Review of Systems General: Reports: Weakness, Malaise HEENT: Reports: No Symptoms Pulmonary: Denies: Shortness of Breath, Cough Cardiovascular: Denies: Chest Pain, Edema, Lightheadedness Gastrointestinal: Reports: Abdominal Pain, Nausea. Denies: Constipation, Diarrhea, Vomiting Genitourinary: Denies: Dysuria, Frequency Musculoskeletal: Reports: No Symptoms Skin: Reports: No Symptoms Neurological: Reports: No Symptoms - Patient Data Vitals - Most Recent: Last Vital Signs Temp 97.6 F 08/31/19 08:00 Pulse 67 08/31/19 08:00 Resp 20 08/31/19 08:00 BP 127/78 08/31/19 08:00 Pulse Ox 99 08/31/19 08:00 Weight - Most Recent: 166 lb 9.6 oz I&O - Last 24 Hours: Intake & Output 08/30/19 08/31/19 08/31/19 22:59 06:59 14:59 Intake Total 500 500 Output Total 700 Balance 500 -200 Lab Results Last 24 Hours: Laboratory Results - last 24 hr 08/30/19 08/31/19 08/31/19 Range/Units 13:00 07:10 07:10 WBC 11.6 H (5.0-10.0) 10^3/uL RBC 4.19 L (4.50-6.00) 10^6/uL Hgb 12.2 L (14.0-18.0) g/dL Hct 37.0 L (40.0-54.0) % MCV 88.3 (82.0-94.0) fL MCH 29.1 (27.0-32.0) pg MCHC 33.0 (33.0-38.0) g/dL RDW Coeff of Cory 14.5 (11.0-15.0) % Plt Count 280 (150-400) 10^3/uL Neut % (Auto) 72.1 (35-85) % Lymph % (Auto) 18.4 (10-55) % [place] % (Auto) 7.4 (0-16) % Eos % (Auto) 1.9 (0-5) % Baso % (Auto) 0.2 (0-3) % Neut # (Auto) 8.37 H (1.80-7.00) 10^3/uL Lymph # (Auto) 2.13 (1.00-4.80) 10^3/uL [place] # (Auto) 0.86 H (0.00-0.80) 10^3/uL Eos # (Auto) 0.22 (0.00-0.45) 10^3/uL Baso # (Auto) 0.02 10^3/uL Sodium 138 (136-145) mEq/L Potassium 3.6 (3.5-5.0) mEq/L Chloride 102 (98-106) mEq/L Carbon Dioxide 32 (21-32) mmol/L BUN 19 H (7-18) mg/dL Creatinine 1.1 (0.7-1.3) mg/dL Est Cr Clr Drug Dosing 73.41 mL/min Estimated GFR (MDRD) > 60 (>=60) mL/min Glucose 93 D (75-99) mg/dL Calcium 8.6 (8.4-10.1) mg/dL Phosphorus 3.6 (2.5-4.9) mg/dL Magnesium 1.9 (1.8-2.4) mg/dL Total Bilirubin 1.6 H (0.0-1.0) mg/dL AST 31 (15-37) U/L ALT 31 (12-78) U/L Alkaline Phosphatase 56 (46-116) U/L Total Protein 6.1 L (6.4-8.2) g/dL Albumin 3.0 L (3.4-5.0) g/dL Urine Color Dark yellow (YELLOW) Urine Appearance Slightly cloudy (CLEAR) Urine pH 5.5 (4.5-8.0) Ur Specific [place] >= 1.030 H (1.003-1.020) Urine Protein 100 H (NEGATIVE) mg/dL Urine Glucose (UA) Negative (NEGATIVE) mg/dL Urine Ketones 15 H (NEGATIVE) mg/dL Urine Occult Blood Negative (NEGATIVE) Urine Nitrite Positive H (NEGATIVE) Urine Bilirubin Large H (NEGATIVE) Urine Urobilinogen 1.0 (0.2-1.0) EU/dL Ur Leukocyte Esterase Negative (NEGATIVE) Urine RBC 0-5 (0-5) /HPF Urine WBC Not seen (0-5) /HPF Ur Epithelial Cells Few H (NOT SEEN) /HPF Hyaline Casts Many H (NOT SEEN) /LPF Med Orders - Current: Current Medications Ceftriaxone Sodium (Rocephin) 1 gm IVPUSH Q24H [facility] Last Admin: 08/30/19 16:52 Dose: 1 gm Lorazepam (Ativan) 1 mg IVPUSH ASDIRECTED PRN PRN Reason: Seizures Discontinued Medications Famotidine (Pepcid) 20 mg IVPUSH ONETIME ONE Stop: 08/30/19 10:35 Sodium Chloride (Normal Saline) 1,000 mls @ 1,000 mls/hr IV .BOLUS ONE Stop: 08/30/19 12:09 Last Admin: 08/30/19 11:35 Dose: 1,000 mls/hr Multivitamins/Minerals 10 ml/Folic Acid 1 mg/ Thiamine HCl 100 mg/ Magnesium Sulfate 2 gm / Sodium Chloride 1,015.2 mls @ 1,000 mls/hr IV ONETIME ONE Stop: 08/30/19 17:21 Last Admin: 08/30/19 17:17 Dose: 1,000 mls/hr Sodium Chloride (Normal Saline) 1,000 mls @ 125 mls/hr IV ASDIRECTED [facility] Pantoprazole Sodium (Protonix Iv) 80 mg IVPUSH ONETIME ONE Stop: 08/30/19 10:38 Last Admin: 08/30/19 11:01 Dose: 80 mg - Exam General: Alert, Oriented HEENT: Mucous Membr. Moist/[place] Neck: Supple Lungs: Clear to Auscultation, Normal Respiratory Effort Cardiovascular: Regular Rate, Regular Rhythm GI/Abdominal Exam: Normal Bowel Sounds, Soft, Tender (midepigastic, bilateral upper quadrants). No: Guarding Extremities: Normal Inspection, No Pedal Edema Skin: Warm, Dry Neurological: No New Focal Deficit - Problem List & Annotations (1) Abdominal pain SNOMED Code(s): 01620646 Code(s): R10.9 - UNSPECIFIED ABDOMINAL PAIN Status: Acute Priority: High Current Visit: Yes Qualifiers: Abdominal location: epigastric Qualified Code(s): R10.13 - Epigastric pain (2) Hiccups SNOMED Code(s): 38099878 Code(s): R06.6 - HICCOUGH Status: Acute Priority: High Current Visit: Yes (3) Renal insufficiency SNOMED Code(s): 108441307, 400224187 Code(s): N28.9 - DISORDER OF KIDNEY AND URETER, UNSPECIFIED Status: Acute Priority: High Current Visit: Yes (4) UTI, Urinary tract infectious disease SNOMED Code(s): 95297548 Code(s): N39.0 - URINARY TRACT INFECTION, SITE NOT SPECIFIED Status: Acute Priority: High Current Visit: Yes (5) Alcoholism SNOMED Code(s): 4435548 Code(s): F10.20 - ALCOHOL DEPENDENCE, UNCOMPLICATED Status: Chronic Priority: High Current Visit: Yes Onset Date: 02/25/16 - Problem List Review Problem List Initiated/Reviewed/Updated: Yes - My Orders Last 24 Hours: My Active Orders 08/31/19 09:19 Abdomen Ltd [US] Routine 08/31/19 09:20 Consult to Physician [CONS] Routine 08/31/19 09:21 Notify Provider Consults [RC] ASDIRECTED - Assessment Assessment:: Abdominal Pain UTI Alcoholism renal Insufficiency Hiccups - Plan Plan:: Patient resting comfortably. Has not had concerns with DTs. Does still have burning in his midepigastric area, hiccups and right upper quadrant pain at times. Did tolerate sausage and maltese toast for breakfast but now states "stomach getting aggravated". Had one episode of vomiting since arrival, mild nausea this am. He continues to have persistent hiccups. Has been scheduled x2 for EGD and has cancelled but expresses today desire to proceed. Urine did show positive nitrites, culture done done. Has no urinary symptoms. WBC 11.6, hemoglboin 12.2, creatinine 1.1 today. Bilirubin improved from 3.2 to 1.6 with hydration. Other liver enzymes normal. Will proceed with GB ultrasound. Continue Protonix 80 mg IV. Proceed with EGD tomorrow.
[2019-08-31] MEDS: cefTRIAXone 1 GM Vial IVPUSH SCH (16:30)
[2019-08-31] MEDS: Pantoprazole 40 MG Vial IVPUSH SCH (20:23)
[2019-09-01 07:55] LABS: CHLORIDE,CL 105 mEq/L (98-106); SODIUM,NA 141 mEq/L (136-145)
[2019-09-01] MEDS ORDERED: Lactated Ringers 1,000 ML IV SCH (11:00)
[2019-09-01] MEDS ORDERED: Meperidine PF 25 MG/ML Syringe IVPUSH ONE (12:45)
[2019-09-01] MEDS ORDERED: Benzocaine 20% Oral Spray 59.2 ML Canister MUCMEM ONE (12:45)
[2019-09-01] MEDS ORDERED: Midazolam 1 MG/ML 2 ML SDV IV ONE (12:47)
[2019-09-01] MEDS ORDERED: Meperidine PF 25 MG/ML Syringe IV ONE (12:49)
--- NOTE | 2019-09-01 15:01 | PCM.PN ---
- General Info Date of Service: 09/01/19 Admission Dx/Problem (Free Text): Abdominal Pain Renal Insufficiency Ascites UTI Functional Status: Reports: Pain Controlled. Denies: Tolerating Diet, Ambulating - Review of Systems General: Reports: Weakness, Fatigue, Malaise HEENT: Reports: No Symptoms Pulmonary: Denies: Shortness of Breath, Cough Cardiovascular: Denies: Chest Pain, Edema, Lightheadedness Gastrointestinal: Reports: Abdominal Pain, Other (hiccups). Denies: Diarrhea, Nausea, Vomiting Genitourinary: Reports: No Symptoms Musculoskeletal: Reports: No Symptoms Skin: Reports: No Symptoms Neurological: Reports: No Symptoms - Patient Data Vitals - Most Recent: Last Vital Signs Temp 96.3 F 09/01/19 12:00 Pulse 75 09/01/19 13:00 Resp 20 09/01/19 13:05 BP 137/92 H 09/01/19 13:05 Pulse Ox 100 09/01/19 13:05 Weight - Most Recent: 166 lb 6.4 oz I&O - Last 24 Hours: Intake & Output 08/31/19 09/01/19 09/01/19 22:59 06:59 14:59 Intake Total 1200 700 Output Total 1100 975 Balance 100 -275 Lab Results Last 24 Hours: Laboratory Results - last 24 hr 09/01/19 09/01/19 Range/Units 07:00 07:00 WBC 8.4 (5.0-10.0) 10^3/uL RBC 4.18 L (4.50-6.00) 10^6/uL Hgb 12.0 L (14.0-18.0) g/dL Hct 37.2 L (40.0-54.0) % MCV 89.0 (82.0-94.0) fL MCH 28.7 (27.0-32.0) pg MCHC 32.3 L (33.0-38.0) g/dL RDW Coeff of Cory 13.9 (11.0-15.0) % Plt Count 252 (150-400) 10^3/uL Neut % (Auto) 66.8 (35-85) % Lymph % (Auto) 21.2 (10-55) % Ashley % (Auto) 8.4 (0-16) % Eos % (Auto) 3.2 (0-5) % Baso % (Auto) 0.4 (0-3) % Neut # (Auto) 5.63 (1.80-7.00) 10^3/uL Lymph # (Auto) 1.79 (1.00-4.80) 10^3/uL Ashley # (Auto) 0.71 (0.00-0.80) 10^3/uL Eos # (Auto) 0.27 (0.00-0.45) 10^3/uL Baso # (Auto) 0.03 10^3/uL Sodium 141 (136-145) mEq/L Potassium 4.0 (3.5-5.0) mEq/L Chloride 105 (98-106) mEq/L Carbon Dioxide 31 (21-32) mmol/L BUN 12 (7-18) mg/dL Creatinine 0.9 (0.7-1.3) mg/dL Est Cr Clr Drug Dosing 89.72 mL/min Estimated GFR (MDRD) > 60 (>=60) mL/min Glucose 103 H (75-99) mg/dL Calcium 8.8 (8.4-10.1) mg/dL Total Bilirubin 0.8 (0.0-1.0) mg/dL AST 48 H (15-37) U/L ALT 49 (12-78) U/L Alkaline Phosphatase 55 (46-116) U/L Total Protein 6.1 L (6.4-8.2) g/dL Albumin 3.0 L (3.4-5.0) g/dL Med Orders - Current: Current Medications Ceftriaxone Sodium (Rocephin) 1 gm IVPUSH Q24H [facility] Last Admin: 08/31/19 16:30 Dose: 1 gm Lactated Ringer's (Ringers, Lactated) 1,000 mls @ 125 mls/hr IV ASDIRECTED [facility] Last Admin: 09/01/19 11:46 Dose: 125 mls/hr Lorazepam (Ativan) 1 mg IVPUSH ASDIRECTED PRN PRN Reason: Seizures Pantoprazole Sodium (Protonix Iv) 80 mg IVPUSH Q24H [facility] Last Admin: 08/31/19 20:23 Dose: 80 mg Discontinued Medications Benzocaine (Hurricaine 20% [place]) 1 ml MUCMEM .STK-MED ONE Stop: 09/01/19 12:46 Last Admin: 09/01/19 12:45 Dose: 1 ml Famotidine (Pepcid) 20 mg IVPUSH ONETIME ONE Stop: 08/30/19 10:35 Sodium Chloride (Normal Saline) 1,000 mls @ 1,000 mls/hr IV .BOLUS ONE Stop: 08/30/19 12:09 Last Admin: 08/30/19 11:35 Dose: 1,000 mls/hr Multivitamins/Minerals 10 ml/Folic Acid 1 mg/ Thiamine HCl 100 mg/ Magnesium Sulfate 2 gm / Sodium Chloride 1,015.2 mls @ 1,000 mls/hr IV ONETIME ONE Stop: 08/30/19 17:21 Last Admin: 08/30/19 17:17 Dose: 1,000 mls/hr Sodium Chloride (Normal Saline) 1,000 mls @ 125 mls/hr IV ASDIRECTED [place] Meperidine HCl (Demerol) 25 mg IVPUSH .STK-MED ONE Stop: 09/01/19 12:46 Last Admin: 09/01/19 12:45 Dose: 25 mg Meperidine HCl (Demerol) 25 mg IV .STK-MED ONE Stop: 09/01/19 12:50 Last Admin: 09/01/19 12:49 Dose: 25 mg Midazolam HCl (Versed 1 Mg/Ml) 4 mg IV .STK-MED ONE Stop: 09/01/19 12:48 Last Admin: 09/01/19 12:47 Dose: 4 mg Pantoprazole Sodium (Protonix Iv) 80 mg IVPUSH ONETIME ONE Stop: 08/30/19 10:38 Last Admin: 08/30/19 11:01 Dose: 80 mg - Exam General: Alert, Oriented HEENT: Mucous Membr. Moist/[place] Neck: Supple Lungs: Clear to Auscultation, Normal Respiratory Effort Cardiovascular: Regular Rate, Regular Rhythm GI/Abdominal Exam: Normal Bowel Sounds, Soft, Tender (bilateral upper quadrants) Extremities: Normal Inspection, No Pedal Edema - Problem List & Annotations (1) Abdominal pain SNOMED Code(s): 02096809 Code(s): R10.9 - UNSPECIFIED ABDOMINAL PAIN Status: Acute Priority: High Current Visit: Yes Qualifiers: Abdominal location: epigastric Qualified Code(s): R10.13 - Epigastric pain (2) Hiccups SNOMED Code(s): 46945945 Code(s): R06.6 - HICCOUGH Status: Acute Priority: High Current Visit: Yes (3) Renal insufficiency SNOMED Code(s): 799197708, 605778402 Code(s): N28.9 - DISORDER OF KIDNEY AND URETER, UNSPECIFIED Status: Acute Priority: High Current Visit: Yes (4) UTI, Urinary tract infectious disease SNOMED Code(s): 73325280 Code(s): N39.0 - URINARY TRACT INFECTION, SITE NOT SPECIFIED Status: Acute Priority: High Current Visit: Yes (5) Alcoholism SNOMED Code(s): 0921439 Code(s): F10.20 - ALCOHOL DEPENDENCE, UNCOMPLICATED Status: Chronic Priority: High Current Visit: Yes Onset Date: 02/25/16 - Problem List Review Problem List Initiated/Reviewed/Updated: Yes - My Orders Last 24 Hours: My Active Orders 08/31/19 20:00 Pantoprazole [ProTONIX IV] 80 mg IVPUSH Q24H - Assessment Assessment:: Abdominal Pain UTI Alcoholism renal Insufficiency Hiccups - Plan Plan:: Patient resting comfortably. Has not had concerns with DTs. Does still have burning in his midepigastric area, hiccups and right upper quadrant pain at times. Did tolerate sausage and [place] toast for breakfast but now states "stomach getting aggravated". Had one episode of vomiting since arrival, mild nausea this am. He continues to have persistent hiccups. Has been scheduled x2 for EGD and has cancelled but expresses today desire to proceed. Urine did show positive nitrites, culture done done. Has no urinary symptoms. WBC 11.6, hemoglboin 12.2, creatinine 1.1 today. Bilirubin improved from 3.2 to 1.6 with hydration. Other liver enzymes normal. Will proceed with GB ultrasound. Continue Protonix 80 mg IV. Proceed with EGD tomorrow. 09-01-2019 Patient resting this am, awaiting EGD. Does continue to have pain in the upper quadrants bilaterally. Hiccups somewhat better this am since hasn't eaten at all since yesterday. No nausea or vomiting this am. Did have gallbladder ultrasound yesterday, unremarkable. Labs remain stable. WBC 8.4. Hemoglobin 12. AST 48, ALT 49, Bilirubin normal now at 0.8. Patient did have CT scan of abdomen on Saturday, did show fatty liver with ascites. Will continue with IV Protonix. Await results of EGD today.
[2019-09-01] MEDS: cefTRIAXone 1 GM Vial IVPUSH SCH (15:13)
[2019-09-01] MEDS: Pantoprazole 40 MG Vial IVPUSH SCH (19:39)
[2019-09-02 07:27] LABS: CHLORIDE,CL 103 mEq/L (98-106); SODIUM,NA 140 mEq/L (136-145)
--- NOTE | 2019-09-02 08:53 | OR ---
DATE OF OPERATION: 09/01/2019 PREOPERATIVE DIAGNOSIS: PERSISTENT GASTROESOPHAGEAL REFLUX DISEASE, EPIGASTRIC PAIN. POSTOPERATIVE DIAGNOSIS: PERSISTENT GASTROESOPHAGEAL REFLUX DISEASE, EPIGASTRIC PAIN. SURGEON: Isiah Mckenna MD PROCEDURE: DIAGNOSTIC ESOPHAGOGASTRODUODENOSCOPY WITH BIOPSIES x7, STEPHANE. ANESTHESIA: Conscious sedation with 4 mg of Versed and 50 mg of Demerol with continuous O2 saturation monitoring, continuous nurse assist. The patient's O2 saturations remained above 90% the entire time. COMPLICATIONS: None. SPECIMEN: 1. Duodenal bulb biopsy x1. 2. Antral biopsy x2. 3. Fundal biopsy x2. 4. Distal esophageal biopsy x3. 5. Antral STEPHANE. FINDINGS: 1. Full-length EGD. 2. Mild duodenitis, duodenal bulb. 3. Diffuse hemorrhagic gastritis, moderate to severe. 4. Small hiatal hernia with moderate to severe reflux esophagitis without stricturing. Multiple ulcerations noted. No active bleeding seen. RECOMMENDATIONS: Close medical followup. INDICATIONS: The patient has been having ongoing issues with epigastric pain and GERD for some time. He is a heavy user of alcohol on a daily basis. He has recently been admitted to the hospital where he elected to proceed with EGD. DESCRIPTION OF PROCEDURE: The patient was prepped and draped, placed in the left lateral decubitus position. A lubricated Olympus gastroscope was inserted over a bit, advanced to cricopharyngeus area, and easily intubated into the esophagus. The esophageal lining was benign until its distal 3rd portion. The distal 3rd of the esophagus has fairly severe reflux esophagitis with linear ulcerations throughout. A lot of mucousy inflammatory changes. A small hernia is present and spontaneous reflux was visualized. Three biopsies of the most affected areas were taken. No obvious signs of Arias's changes. Due to the severity of the inflammation, hard to discern. No varices were seen. The scope was advanced into the stomach through the pylorus into the second portion of the duodenum. This was benign. The duodenal bulb had some very mild inflammatory change. A biopsy was taken. The scope was brought back into the stomach. The entire stomach lining other than the cardia portion of the stomach had fairly significant hemorrhagic gastritis with no gross ulcerations or active bleeding. I did 4 inbound sales representative biopsies, two in the fundus and two in the antrum. A CLOtest was obtained in an unaffected portion of the antrum. Air was then suctioned from the stomach and the scope was removed without complication. CLARE/PRITI /[id number]
[2019-09-02 10:39] VITALS: BP 146/91; PULSE 70
--- NOTE | 2019-09-02 11:15 | PCM.DCSUM1 ---
Discharge Summary - Hospital Course Free Text/Narrative:: Willis is a 54 year old who presented to ER with complaints of abdominal pain in the midepigastric area. States comes and goes but has increased over the last 2 days. Admits to nausea and vomiting. Has chronic hiccups over the last month or so. She has cancelled 2 EGDs as of late. Patient has history of Alcoholism. WBC 16.0. Sodium 139. Potassium 3.8. BUN 24. UA showed positive nitrites. ETOH was negative. Liver enzymes show bilirubin 3.2. AST 24. ALT 40. CT scan of abdomen was done and showed liver cirrhosis, ascites. Diagnosis: Stroke: No Modified [place] Scale: No Symptoms at All Modified Lexii Scale Score: 0 - Discharge Data Discharge Date: 09/02/19 Discharge Disposition: Home, Self-Care 01 Condition: Fair - Referral to Home Health Primary Care Physician: Isiah Mckenna MD - Discharge Diagnosis/Problem(s) (1) Abdominal pain SNOMED Code(s): 74525858 ICD Code: R10.9 - UNSPECIFIED ABDOMINAL PAIN Status: Acute Priority: High Qualifiers: Abdominal location: epigastric Qualified Code(s): R10.13 - Epigastric pain (2) Hiccups SNOMED Code(s): 21218367 ICD Code: R06.6 - HICCOUGH Status: Acute Priority: High (3) Renal insufficiency SNOMED Code(s): 909216408, 446942098 ICD Code: N28.9 - DISORDER OF KIDNEY AND URETER, UNSPECIFIED Status: Acute Priority: High (4) UTI, Urinary tract infectious disease SNOMED Code(s): 78802348 ICD Code: N39.0 - URINARY TRACT INFECTION, SITE NOT SPECIFIED Status: Acute Priority: High (5) Alcoholism SNOMED Code(s): 3298135 ICD Code: F10.20 - ALCOHOL DEPENDENCE, UNCOMPLICATED Status: Chronic Priority: High Onset Date: 02/25/16 - Patient Summary/Data Complications: none Consults: Consultations 08/31/19 09:20 Consult to Physician [CONS] Routine Hospital Course: Patient is feeling better. Tolerating meals. No fevers. no further nausea or vomiting. Does feel hiccups are improved. He has been treated with Rocephin for the last 3 days for an UTI. Did have EGD this am, showed hemorrhagic gastritis. CT scan with presence of ascites and liver cirrhosis noted on admit. Long discussion held with patient in regards to results of both. He is aware that further alcohol use with worsen the disease process. States has "quit before for 4 years, feels can do again". He is also informed that needs to avoid NSAIDs and caffeine. Will be discharged home on Protonix BID and Carafate. Ceftin BID for the next week. Follow up with Dr. Mckenna in one week for recheck. - Patient Instructions Diet: Usual Diet as Tolerated Activity: As Tolerated Other/Special Instructions: 1. Need to stop alcohol consumption to prevent further liver damage. 2. Avoid caffeine, ibuprofen, alcohol, nicotine to allow stomach to heal - Discharge Plan *PRESCRIPTION DRUG MONITORING PROGRAM REVIEWED*: Not Applicable *COPY OF PRESCRIPTION DRUG MONITORING REPORT IN PATIENT KELL: Not Applicable Prescriptions/Med Rec: Cefuroxime Axetil [Ceftin] 250 mg PO BID #14 tablet Pantoprazole Sodium [Protonix] 40 mg PO DAILY #30 tablet. Home Medications: Home Meds Lisinopril 20 mg PO DAILY #90 tablet 07/30/18 [Rx] hydrOXYzine HCl [Hydroxyzine HCl] 50 mg PO TID PRN 08/04/19 [History] Cefuroxime Axetil [Ceftin] 250 mg PO BID #14 tablet 09/02/19 [Rx] Pantoprazole Sodium [Protonix] 40 mg PO DAILY #30 tablet. 09/02/19 [Rx] Forms: ED Department Discharge Referrals: Isiah Mckenna MD [Primary Care Provider] - (Follow up with Dr. Mckenna in one week) - Discharge Summary/Plan Comment DC Time >30 min.: No - General Info Date of Service: 09/02/19 Admission Dx/Problem (Free Text: Abdominal Pain Renal Insufficiency Ascites UTI Functional Status: Reports: Pain Controlled, Tolerating Diet, Ambulating - Review of Systems General: Denies: Fever, Weakness, Fatigue HEENT: Reports: No Symptoms Pulmonary: Denies: Shortness of Breath, Cough Cardiovascular: Denies: Chest Pain, Edema, Lightheadedness Gastrointestinal: Reports: Abdominal Pain. Denies: Decreased Appetite, Diarrhea , Nausea, Vomiting Genitourinary: Reports: No Symptoms Musculoskeletal: Reports: No Symptoms Skin: Reports: No Symptoms Neurological: Reports: No Symptoms - Patient Data Vitals - Most Recent: Last Vital Signs Temp 97.7 F 11/06/19 08:00 Pulse 70 09/02/19 08:00 Resp 16 09/02/19 08:00 BP 146/91 H 09/02/19 08:00 Pulse Ox 100 09/02/19 08:00 Weight - Most Recent: 166 lb 6.4 oz I&O - Last 24 hours: Intake & Output 09/01/19 09/02/19 09/02/19 22:59 06:59 14:59 Intake Total 1400 Output Total 1000 Balance 400 Lab Results - Last 24 hrs: Laboratory Results - last 24 hr 09/02/19 09/02/19 Range/Units 06:55 06:55 WBC 8.0 (5.0-10.0) 10^3/uL RBC 4.27 L (4.50-6.00) 10^6/uL Hgb 12.4 L (14.0-18.0) g/dL Hct 38.2 L (40.0-54.0) % MCV 89.5 (82.0-94.0) fL MCH 29.0 (27.0-32.0) pg MCHC 32.5 L (33.0-38.0) g/dL RDW Coeff of Cory 13.8 (11.0-15.0) % Plt Count 264 (150-400) 10^3/uL Neut % (Auto) 66.0 (35-85) % Lymph % (Auto) 20.3 (10-55) % Grand % (Auto) 9.9 (0-16) % Eos % (Auto) 3.4 (0-5) % Baso % (Auto) 0.4 (0-3) % Neut # (Auto) 5.29 (1.80-7.00) 10^3/uL Lymph # (Auto) 1.62 (1.00-4.80) 10^3/uL Grand # (Auto) 0.79 (0.00-0.80) 10^3/uL Eos # (Auto) 0.27 (0.00-0.45) 10^3/uL Baso # (Auto) 0.03 10^3/uL Sodium 140 (136-145) mEq/L Potassium 3.9 (3.5-5.0) mEq/L Chloride 103 (98-106) mEq/L Carbon Dioxide 30 (21-32) mmol/L BUN 9 (7-18) mg/dL Creatinine 0.8 (0.7-1.3) mg/dL Est Cr Clr Drug Dosing 100.94 mL/min Estimated GFR (MDRD) > 60 (>=60) mL/min Glucose 102 H (75-99) mg/dL Calcium 8.7 (8.4-10.1) mg/dL Total Bilirubin 0.5 (0.0-1.0) mg/dL AST 58 H (15-37) U/L ALT 74 (12-78) U/L Alkaline Phosphatase 59 (46-116) U/L Total Protein 6.4 (6.4-8.2) g/dL Albumin 2.3 L (3.4-5.0) g/dL CARLOS Results - Last 24 hrs: Microbiology 09/01/19 13:11 CLOtest - Final Stomach NEGATIVE CLOTEST REFERENCE RANGE: NEGATIVE Med Orders - Current: Current Medications Discontinued Medications Benzocaine (Hurricaine 20% [place]) 1 ml MUCMEM .STK-MED ONE Stop: 09/01/19 12:46 Last Admin: 09/01/19 12:45 Dose: 1 ml Ceftriaxone Sodium (Rocephin) 1 gm IVPUSH Q24H CL[place] Last Admin: 09/01/19 15:13 Dose: 1 gm Famotidine (Pepcid) 20 mg IVPUSH ONETIME ONE Stop: 08/30/19 10:35 Sodium Chloride (Normal Saline) 1,000 mls @ 1,000 mls/hr IV .BOLUS ONE Stop: 08/30/19 12:09 Last Admin: 08/30/19 11:35 Dose: 1,000 mls/hr Multivitamins/Minerals 10 ml/Folic Acid 1 mg/ Thiamine HCl 100 mg/ Magnesium Sulfate 2 gm / Sodium Chloride 1,015.2 mls @ 1,000 mls/hr IV ONETIME ONE Stop: 08/30/19 17:21 Last Admin: 08/30/19 17:17 Dose: 1,000 mls/hr Sodium Chloride (Normal Saline) 1,000 mls @ 125 mls/hr IV ASDIRECTED CL[place] Lactated Ringer's (Ringers, Lactated) 1,000 mls @ 125 mls/hr IV ASDIRECTED CL[place] Last Admin: 09/01/19 11:46 Dose: 125 mls/hr Lorazepam (Ativan) 1 mg IVPUSH ASDIRECTED PRN PRN Reason: Seizures Meperidine HCl (Demerol) 25 mg IVPUSH .STK-MED ONE Stop: 09/01/19 12:46 Last Admin: 09/01/19 12:45 Dose: 25 mg Meperidine HCl (Demerol) 25 mg IV .STK-MED ONE Stop: 09/01/19 12:50 Last Admin: 09/01/19 12:49 Dose: 25 mg Midazolam HCl (Versed 1 Mg/Ml) 4 mg IV .STK-MED ONE Stop: 09/01/19 12:48 Last Admin: 09/01/19 12:47 Dose: 4 mg Pantoprazole Sodium (Protonix Iv) 80 mg IVPUSH ONETIME ONE Stop: 08/30/19 10:38 Last Admin: 08/30/19 11:01 Dose: 80 mg Pantoprazole Sodium (Protonix Iv) 80 mg IVPUSH Q24H [place] Last Admin: 09/01/19 19:39 Dose: 80 mg - Exam General: Reports: Alert, Oriented HEENT: Reports: Mucous Membr. Moist/[place] Neck: Reports: Supple Lungs: Reports: Clear to Auscultation, Normal Respiratory Effort Cardiovascular: Reports: Regular Rate, Regular Rhythm GI/Abdominal Exam: Normal Bowel Sounds, Soft, Non-Tender Extremities: Normal Inspection, No Pedal Edema Skin: Reports: Warm, Dry Neurological: Reports: No New Focal Deficit
== END 2019-09-02 09:30 | disposition home or self-care (01) | DRG 378 ==
LOC: CC.ED 10:25 → UNDOADMIN 13:30 → CC.MS 13:30
PROVIDERS: ADMIT Nurse Practitioner; ATTEND Family Medicine
PROC: 0DB98ZX Excision of Duodenum, Via Natural or Artificial Opening Endoscopic, Diagnostic (ICD-10-PCS; principal; 2019-09-01)
PROC: 0DB68ZX Excision of Stomach, Via Natural or Artificial Opening Endoscopic, Diagnostic (ICD-10-PCS; 2019-09-01)
DX: K29.71 Gastritis, unspecified, with bleeding (principal); N39.0 Urinary tract infection, site not specified; F10.288 Alcohol dependence with other alcohol-induced disorder; K29.80 Duodenitis without bleeding; K44.9 Diaphragmatic hernia without obstruction or gangrene; K21.0 Gastro-esophageal reflux disease with esophagitis; K70.31 Alcoholic cirrhosis of liver with ascites; R06.6 Hiccough; I10 Essential (primary) hypertension; F41.9 Anxiety disorder, unspecified; F32.9 Major depressive disorder, single episode, unspecified; N28.9 Disorder of kidney and ureter, unspecified; K76.0 Fatty (change of) liver, not elsewhere classified; Z88.1 Allergy status to other antibiotic agents; Z79.899 Other long term (current) drug therapy
CPT/HCPCS: 36415; 43239; 74176; 76705; 80053; 81001; 82150; 83690; 83735; 84100; 85025; 87081; 96361; 96374; 99285-25; C9113; G0480; J0696; J2175; J2250; J3411; J3475; J3490; J7030; J7120

== ENCOUNTER 2019-09-11 21:05 | Emergency (ER) | payer OTHER, MEDICAID ==
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
[2019-09-11 21:38] VITALS: PULSE 86
[2019-09-11] MEDS ORDERED: cloNIDine 0.1 MG Tab PO ONE (22:12)
[2019-09-12 01:05] VITALS: BP 152/92
== END 2019-09-11 22:50 | disposition home or self-care (01) ==
LOC: CC.ED 21:05
DX: S16.1XXA Strain of muscle, fascia and tendon at neck level, initial encounter (principal); I10 Essential (primary) hypertension; K21.9 Gastro-esophageal reflux disease without esophagitis; F41.9 Anxiety disorder, unspecified; F32.9 Major depressive disorder, single episode, unspecified; Z88.1 Allergy status to other antibiotic agents; Z88.8 Allergy status to other drugs, medicaments and biological substances; V59.9XXA Occupant (driver) (passenger) of pick-up truck or van injured in unspecified traffic accident, initial encounter
CPT/HCPCS: 72040; 99283; A9270

== ENCOUNTER 2019-09-26 23:04 | Emergency (ER) | payer MEDICAID ==
[2019-09-26] MEDS ORDERED: Ketorolac 60 MG/2 ML SDV IM ONE (23:10)
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
[2019-09-26 23:56] VITALS: BP 138/70; PULSE 101
== END 2019-09-26 23:34 | disposition home or self-care (01) ==
LOC: CC.ED 23:04
DX: S16.1XXD Strain of muscle, fascia and tendon at neck level, subsequent encounter (principal); K21.9 Gastro-esophageal reflux disease without esophagitis; I10 Essential (primary) hypertension; Z88.1 Allergy status to other antibiotic agents; Z88.8 Allergy status to other drugs, medicaments and biological substances; Z79.899 Other long term (current) drug therapy; X58.XXXD Exposure to other specified factors, subsequent encounter
CPT/HCPCS: 96372; 99283; J1885

== ENCOUNTER 2020-04-29 09:25 | Emergency (ER) | payer MEDICAID ==
[2020-04-29 09:34] VITALS: BP 147/89; PULSE 95
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
[2020-04-29] MEDS ORDERED: Potassium Chloride 10 MEQ Tab.ER PO SCH (10:30)
[2020-04-29] MEDS ORDERED: Ketorolac 60 MG/2 ML SDV IM ONE (10:32)
[2020-04-29 10:48] LABS: HEMOGLOBIN A1C 5.7 % (4.8-5.6)
== END 2020-04-29 11:13 | disposition home or self-care (01) ==
LOC: CC.ED 09:25
DX: S00.03XA Contusion of scalp, initial encounter (principal); S00.511A Abrasion of lip, initial encounter; E87.6 Hypokalemia; I10 Essential (primary) hypertension; K21.9 Gastro-esophageal reflux disease without esophagitis; Z88.8 Allergy status to other drugs, medicaments and biological substances; Z88.1 Allergy status to other antibiotic agents; Z79.899 Other long term (current) drug therapy; V19.9XXA Pedal cyclist (driver) (passenger) injured in unspecified traffic accident, initial encounter
CPT/HCPCS: 36415; 70450; 73030-LT; 80048; 80307; 83036; 85025; 93005; 96372; 99285-25; A9270-GY; J1885

== ENCOUNTER 2021-06-17 14:46 | Emergency (ER) | payer MEDICAID ==
[2021-06-17 14:49] VITALS: BP 126/82; PULSE 118
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
== END 2021-06-17 16:39 | disposition left against medical advice (07) ==
LOC: CC.ED 14:46
DX: S52.091A Other fracture of upper end of right ulna, initial encounter for closed fracture (principal); I10 Essential (primary) hypertension; K21.9 Gastro-esophageal reflux disease without esophagitis; Z79.899 Other long term (current) drug therapy; Z88.1 Allergy status to other antibiotic agents; Z88.8 Allergy status to other drugs, medicaments and biological substances; W01.0XXA Fall on same level from slipping, tripping and stumbling without subsequent striking against object, initial encounter
CPT/HCPCS: 29105; 73080-RT; 99283-25

== ENCOUNTER 2021-11-25 14:58 | Emergency (ER) | payer BC, MEDICAID ==
[2021-11-25 15:08] VITALS: BP 159/94; PULSE 88
[2021-11-25] MEDS ORDERED: Take Home: Cephalexin 500 MG Cap, 4 Cap Pack PO ONE (15:26)
[2021-11-25] MEDS ORDERED: Take Home: Clindamycin HCl 150 MG Cap, 6 Cap Pack PO ONE (15:26)
[2021-11-25] MEDS ORDERED: Acetaminophen/HYDROcodone 325-5 MG Tab PO PRN (15:26)
== END 2021-11-25 16:00 | disposition home or self-care (01) ==
LOC: CC.ED 14:58
DX: L03.116 Cellulitis of left lower limb (principal); I10 Essential (primary) hypertension; Z79.899 Other long term (current) drug therapy; Z88.1 Allergy status to other antibiotic agents; Z88.8 Allergy status to other drugs, medicaments and biological substances; Z72.0 Tobacco use
CPT/HCPCS: 99283; A9270-GY

== ENCOUNTER 2023-01-06 17:27 | Emergency (ER) | payer MEDICAID ==
[2023-01-06 17:30] VITALS: BP 161/99; PULSE 104
== END 2023-01-06 18:08 | disposition left against medical advice (07) ==
LOC: CC.ED 17:27
DX: Z53.21 Procedure and treatment not carried out due to patient leaving prior to being seen by health care provider (principal)

== ENCOUNTER 2023-02-21 10:28 | Inpatient (IN) | payer MEDICAID ==
[2023-02-21 11:05] LABS: CHLORIDE,CL 92 mEq/L (98-106); SODIUM,NA 137 mEq/L (136-145)
[2023-02-21 11:20] LABS: ESTIMATED GFR 31 mL/min (>=60)
[2023-02-21] MEDS ORDERED: Polyethylene Glycol 3350 Powder 17 GM Packet PO PRN (12:32)
[2023-02-21] MEDS ORDERED: Ondansetron 4 MG Tab.DIS PO PRN (12:32)
[2023-02-21] MEDS ORDERED: Docusate Sodium 100 MG Cap PO PRN (12:32)
[2023-02-21] MEDS ORDERED: Ondansetron 4 MG/2 ML SDV IV PRN (12:32)
[2023-02-21] MEDS ORDERED: Sodium Chloride 0.9% 10 ML Syringe FLUSH PRN (12:32)
[2023-02-21] MEDS ORDERED: Acetaminophen 325 MG Tab PO PRN (12:32)
[2023-02-21] MEDS: Sodium Chloride 0.9% 1,000 ML IV SCH ×2 (13:23→14:43)
[2023-02-21] MEDS: LORazepam 2 MG/ML Syringe IVPUSH PRN ×2 (15:51→20:06)
[2023-02-21] MEDS ORDERED: Sodium Chloride 0.9% 1,000 ML IV ONE (16:14)
[2023-02-21] MEDS ORDERED: Famotidine 20 MG/2 ML SDV IVPUSH ONE (16:15)
[2023-02-21] MEDS ORDERED: Sodium Chloride 0.9% 1,000 ML IV SCH (18:30)
[2023-02-21] MEDS ORDERED: Enoxaparin 40 MG/0.4 ML Syringe SUBCUT SCH (20:00)
[2023-02-21] MEDS: Folic Acid 1 MG, Multivitamins 1 TAB, Thiamine 100 MG, Magnesium Oxide 500 MG PO SCH ×4 (20:49)
[2023-02-22] MEDS: Lisinopril 20 MG Tab PO SCH (07:33)
[2023-02-22] MEDS: Folic Acid 1 MG, Multivitamins 1 TAB, Thiamine 100 MG, Magnesium Oxide 500 MG PO SCH ×4 (07:34)
[2023-02-22] MEDS ORDERED: Iopamidol 755 Mg/ML 100 ML Bottle IVPUSH ONE (10:50)
[2023-02-22] MEDS ORDERED: Sodium Chloride 0.9% 250 ML IV SCH (11:00)
[2023-02-23] MEDS: Folic Acid 1 MG, Multivitamins 1 TAB, Thiamine 100 MG, Magnesium Oxide 500 MG PO SCH ×4 (07:48)
[2023-02-23] MEDS: Lisinopril 20 MG Tab PO SCH (07:48)
[2023-02-23 07:49] VITALS: BP 165/102
[2023-02-23 08:00] VITALS: PULSE 95
== END 2023-02-23 08:47 | disposition home or self-care (01) | DRG 683 ==
LOC: CC.MS 10:28 → CC.FCMC 10:28 → UNDOADMOB 12:22 → CC.MS 12:22 → UNDOADMOB 12:32 → INTOOBSV 17:40 → OBSVTOIN 17:40 → CC.MS 18:18
PROVIDERS: ADMIT Nurse Practitioner Family; ATTEND Nurse Practitioner Family
DX: N17.9 Acute kidney failure, unspecified (principal); F10.939 Alcohol use, unspecified with withdrawal, unspecified; E86.0 Dehydration; R79.89 Other specified abnormal findings of blood chemistry; E83.42 Hypomagnesemia; K21.9 Gastro-esophageal reflux disease without esophagitis; F41.9 Anxiety disorder, unspecified; F17.210 Nicotine dependence, cigarettes, uncomplicated; F32.A Depression, unspecified; Z88.1 Allergy status to other antibiotic agents; Z88.8 Allergy status to other drugs, medicaments and biological substances; Z91.018 Allergy to other foods; Z98.890 Other specified postprocedural states
CPT/HCPCS: 36415; 71046; 71275; 80053; 82565; 83615; 83735; 84100; 84484; 85025; 85379; 93005; 93010; 93970; 99223; 99233; 99239; A9270-GY; J2060; J3490; J7030; J7050; Q0161; Q9967

== ENCOUNTER 2023-06-29 09:45 | Emergency (ER) | payer MEDICAID ==
[2023-06-29 10:21] LABS: BASOPHILS ABSOLUTE AUTO 0.05 10^3/uL (0.00-0.50); BASOPHILS PERCENT AUTO 0.6 % (0-1); EOSINOPHILS ABSOLUTE AUTO 0.48 10^3/uL (0.00-1.50); EOSINOPHILS PERCENT AUTO 5.6 % (0-6); HEMATOCRIT 35.5 % (42.0-52.0); HEMOGLOBIN 12.1 g/dL (14.0-18.0); IMMATURE GRAN ABSOLUTE AUTO 0.02 10^3/uL (0.00-0.49); IMMATURE GRAN PERCENT AUTO 0.2 % (0.0-4.9); LYMPHOCYTES ABSOLUTE AUTO 1.18 10^3/uL (0.60-5.00); LYMPHOCYTES PERCENT AUTO 13.9 % (24-44); MEAN CORPUSCULAR HEMOGLOBIN 32.3 pg (27.0-32.0); MEAN CORPUSCULAR HGB CONC 34.1 g/dL (32.0-36.0); MEAN CORPUSCULAR VOLUME 94.7 fL (83.0-97.0); MONOCYTES ABSOLUTE AUTO 0.81 10^3/uL (0.00-1.50); MONOCYTES PERCENT AUTO 9.5 % (0-10); NEUTROPHILS ABSOLUTE AUTO 5.96 x10^3/uL (1.80-8.00); NEUTROPHILS PERCENT AUTO 70.2 % (41-71); PLATELET COUNT,PLT 261 10^3/uL (150-400); RED BLOOD CELL COUNT 3.75 x10^6/uL (4.50-6.00); WHITE BLOOD CELL COUNT,WBC 8.5 10^3/uL (4.0-11.0)
[2023-06-29 10:33] LABS: APPEARANCE,URINE CLEAR (CLEAR); BILIRUBIN,URINE NEGATIVE (NEGATIVE); COLOR,URINE YELLOW (YELLOW); GLUCOSE,URINE NEGATIVE (NEGATIVE); KETONES,URINE NEGATIVE (NEGATIVE); LEUKOCYTE ESTERASE,URINE NEGATIVE (NEGATIVE); NITRITE,URINE NEGATIVE (NEGATIVE); OCCULT BLOOD,URINE TRACE-INTACT (NEGATIVE); PH,URINE 5.5 (4.5-8.0); PROTEIN,URINE NEGATIVE (NEGATIVE); UROBILINOGEN,URINE 0.2 EU/dL (0.2-1.0)
[2023-06-29 10:36] LABS: ALANINE AMINOTRANSFERASE,ALT 86 U/L (12-78); ALBUMIN 3.3 g/dL (3.4-5.0); ALKALINE PHOSPHATASE 72 U/L (46-116); ASPARTATE AMNIOTRANSFERASE,AST 44 U/L (15-37); BILIRUBIN TOTAL 1.2 mg/dL (0.0-1.0); BLOOD UREA NITROGEN,BUN 8 mg/dL (7-18); C-REACTIVE PROTEIN 1.35 mg/dL (<=0.30); CALCIUM 8.7 mg/dL (8.4-10.1); CARBON DIOXIDE,CO2 22 mmol/L (21-32); CHLORIDE,CL 99 mEq/L (98-106); EST CRCL DRUG DOSING (CG) 76.95 mL/min; GLUCOSE RANDOM 167 mg/dL (75-99); POTASSIUM,K 3.1 mEq/L (3.5-5.0); PROTEIN TOTAL,TP 6.9 g/dL (6.4-8.2); SODIUM,NA 134 mEq/L (136-145)
[2023-06-29] MEDS ORDERED: Ketorolac 30 MG/ML SDV IVPUSH ONE (10:36)
[2023-06-29] MEDS ORDERED: Sodium Chloride 0.9% 1,000 ML IV ONE (10:36)
[2023-06-29 10:42] LABS: ESTIMATED GFR 87 mL/min (>=60)
[2023-06-29 10:43] LABS: BACTERIA,URINE NOT SEEN /HPF (NOT SEEN); EPITHELIAL CELLS,URINE NOT SEEN /HPF (NOT SEEN); MUCUS,URINE OCCASIONAL /HPF (NOT SEEN); RBC,URINE 0-5 /HPF (0-5); WBC,URINE NOT SEEN /HPF (0-5)
[2023-06-29] MEDS ORDERED: Clindamycin Phosphate in D5W 600 MG in Premix Bag 1 BAG IV ONE ×2 (10:51)
[2023-06-29] MEDS ORDERED: Potassium Chloride 10 MEQ Tab.ER PO ONE (10:53)
[2023-06-29] MEDS ORDERED: Dexamethasone 10 MG/ML SDV IVPUSH ONE (11:33)
[2023-06-29] MEDS ORDERED: Furosemide 20 MG Tab PO ONE ×2 (12:21)
[2023-06-29] MEDS ORDERED: Take Home: Clindamycin HCl 150 MG Cap, 6 Cap Pack PO ONE ×2 (12:22→12:24)
[2023-06-29 12:33] VITALS: BP 156/98; PULSE 81
== END 2023-06-29 12:47 | disposition home or self-care (01) ==
LOC: CC.ED 09:45
DX: L03.115 Cellulitis of right lower limb (principal); L03.116 Cellulitis of left lower limb; A49.01 Methicillin susceptible Staphylococcus aureus infection, unspecified site; I10 Essential (primary) hypertension; K21.9 Gastro-esophageal reflux disease without esophagitis; Z91.018 Allergy to other foods; Z88.1 Allergy status to other antibiotic agents; Z79.899 Other long term (current) drug therapy
CPT/HCPCS: 36415; 80053; 81001; 83605; 83880; 84484; 85025; 86140; 87040; 96365; 96375; 99283-25; 99284; A9270-GY; J1100; J1885; J3490; J7030

== ENCOUNTER 2023-07-12 23:10 | Emergency (ER) | payer MEDICAID ==
[2023-07-13] MEDS ORDERED: Sodium Chloride 0.9% 10 ML Syringe FLUSH PRN (00:05)
[2023-07-13 00:22] LABS: BASOPHILS ABSOLUTE AUTO 0.06 10^3/uL (0.00-0.50); BASOPHILS PERCENT AUTO 0.5 % (0-1); EOSINOPHILS ABSOLUTE AUTO 0.66 10^3/uL (0.00-1.50); EOSINOPHILS PERCENT AUTO 5.1 % (0-6); HEMATOCRIT 39.2 % (42.0-52.0); HEMOGLOBIN 13.5 g/dL (14.0-18.0); IMMATURE GRAN ABSOLUTE AUTO 0.07 10^3/uL (0.00-0.49); IMMATURE GRAN PERCENT AUTO 0.5 % (0.0-4.9); LYMPHOCYTES ABSOLUTE AUTO 1.84 10^3/uL (0.60-5.00); LYMPHOCYTES PERCENT AUTO 14.3 % (24-44); MEAN CORPUSCULAR HEMOGLOBIN 32.2 pg (27.0-32.0); MEAN CORPUSCULAR HGB CONC 34.4 g/dL (32.0-36.0); MEAN CORPUSCULAR VOLUME 93.6 fL (83.0-97.0); MONOCYTES ABSOLUTE AUTO 1.38 10^3/uL (0.00-1.50); MONOCYTES PERCENT AUTO 10.7 % (0-10); NEUTROPHILS PERCENT AUTO 68.9 % (41-71); PLATELET COUNT,PLT 316 10^3/uL (150-400); RED BLOOD CELL COUNT 4.19 x10^6/uL (4.50-6.00); WHITE BLOOD CELL COUNT,WBC 12.9 10^3/uL (4.0-11.0)
[2023-07-13 00:31] LABS: BLOOD UREA NITROGEN,BUN 9 mg/dL (7-18); C-REACTIVE PROTEIN 0.75 mg/dL (<=0.30); CALCIUM 9.1 mg/dL (8.4-10.1); CARBON DIOXIDE,CO2 25 mmol/L (21-32); CHLORIDE,CL 96 mEq/L (98-106); GLUCOSE RANDOM 116 mg/dL (75-99); POTASSIUM,K 3.8 mEq/L (3.5-5.0); SODIUM,NA 132 mEq/L (136-145)
[2023-07-13 00:32] LABS: ESTIMATED GFR 87 mL/min (>=60)
[2023-07-13] MEDS: Ketorolac 30 MG/ML SDV IVPUSH ONE (00:55)
[2023-07-13] MEDS: diphenhydrAMINE 50 MG/ML SDV IVPUSH ONE (00:55)
[2023-07-13] MEDS: Sodium Chloride 0.9% 1,000 ML IV SCH (02:11)
[2023-07-13] MEDS: Furosemide 20 MG/2 ML VIAL IVPUSH ONE (03:50)
[2023-07-13 05:28] VITALS: BP 145/99; PULSE 109
== END 2023-07-13 11:46 | disposition home or self-care (01) ==
LOC: CC.ED 23:10
DX: L30.9 Dermatitis, unspecified (principal); I10 Essential (primary) hypertension; Z79.899 Other long term (current) drug therapy; Z88.1 Allergy status to other antibiotic agents; Z91.018 Allergy to other foods
CPT/HCPCS: 36415; 80048; 83605; 85025; 86140; 96361; 96374; 96375; 99283; 99283-25; J1200; J1885; J1940; J7030

== ENCOUNTER 2023-08-14 19:25 | Observation (INO) | payer MEDICAID ==
[2023-08-14] MEDS ORDERED: Sodium Chloride 0.9% 1,000 ML IV ONE (19:49)
[2023-08-14 20:01] LABS: BASOPHILS ABSOLUTE AUTO 0.03 10^3/uL (0.00-0.50); BASOPHILS PERCENT AUTO 0.3 % (0-1); EOSINOPHILS PERCENT AUTO 0.8 % (0-6); HEMATOCRIT 46.6 % (42.0-52.0); HEMOGLOBIN 16.4 g/dL (14.0-18.0); IMMATURE GRAN ABSOLUTE AUTO 0.02 10^3/uL (0.00-0.49); IMMATURE GRAN PERCENT AUTO 0.2 % (0.0-4.9); LYMPHOCYTES PERCENT AUTO 7.6 % (24-44); MEAN CORPUSCULAR HEMOGLOBIN 32.3 pg (27.0-32.0); MEAN CORPUSCULAR HGB CONC 35.2 g/dL (32.0-36.0); MEAN CORPUSCULAR VOLUME 91.7 fL (83.0-97.0); MONOCYTES ABSOLUTE AUTO 0.76 10^3/uL (0.00-1.50); MONOCYTES PERCENT AUTO 6.4 % (0-10); NEUTROPHILS ABSOLUTE AUTO 10.02 x10^3/uL (1.80-8.00); NEUTROPHILS PERCENT AUTO 84.7 % (41-71); PLATELET COUNT,PLT 328 10^3/uL (150-400); RED BLOOD CELL COUNT 5.08 x10^6/uL (4.50-6.00); WHITE BLOOD CELL COUNT,WBC 11.8 10^3/uL (4.0-11.0)
[2023-08-14] MEDS ORDERED: LORazepam 2 MG/ML SDV IVPUSH STA (20:08)
[2023-08-14] MEDS ORDERED: Ondansetron 4 MG/2 ML SDV IVPUSH STA ×2 (20:08→21:14)
[2023-08-14] MEDS ORDERED: MVI, Adult with Vitamin K 10 ML, Folic Acid 1 MG, Thiamine 100 MG, Magnesium Sulfate 2 ... IV ONE ×5 (20:12)
[2023-08-14 20:17] LABS: ALANINE AMINOTRANSFERASE,ALT 51 U/L (12-78); ALBUMIN 4.4 g/dL (3.4-5.0); ALKALINE PHOSPHATASE 80 U/L (46-116); ASPARTATE AMNIOTRANSFERASE,AST 37 U/L (15-37); BILIRUBIN TOTAL 1.8 mg/dL (0.0-1.0); BLOOD UREA NITROGEN,BUN 10 mg/dL (7-18); CALCIUM 10.2 mg/dL (8.4-10.1); CARBON DIOXIDE,CO2 28 mmol/L (21-32); CHLORIDE,CL 95 mEq/L (98-106); ESTIMATED GFR 87 mL/min (>=60); GLUCOSE RANDOM 129 mg/dL (75-99); MAGNESIUM 1.5 mg/dL (1.8-2.4); POTASSIUM,K 3.6 mEq/L (3.5-5.0); PROTEIN TOTAL,TP 8.9 g/dL (6.4-8.2); SODIUM,NA 137 mEq/L (136-145)
[2023-08-14] MEDS ORDERED: Iopamidol 755 Mg/ML 100 ML Bottle IVPUSH ONE (20:18)
[2023-08-14] MEDS ORDERED: Folic Acid 1 MG, Multivitamins 1 TAB, Thiamine 100 MG, Magnesium Oxide 500 MG PO ONE ×4 (20:56)
[2023-08-14 21:02] LABS: APPEARANCE,URINE CLEAR (CLEAR); BILIRUBIN,URINE NEGATIVE (NEGATIVE); COLOR,URINE YELLOW (YELLOW); GLUCOSE,URINE NEGATIVE (NEGATIVE); KETONES,URINE 15 mg/dL (NEGATIVE); LEUKOCYTE ESTERASE,URINE NEGATIVE (NEGATIVE); NITRITE,URINE NEGATIVE (NEGATIVE); OCCULT BLOOD,URINE NEGATIVE (NEGATIVE); PROTEIN,URINE 100 mg/dL (NEGATIVE)
[2023-08-14 21:05] LABS: BACTERIA,URINE NOT SEEN /HPF (NOT SEEN); EPITHELIAL CELLS,URINE NOT SEEN /HPF (NOT SEEN); MUCUS,URINE OCCASIONAL /HPF (NOT SEEN); RBC,URINE NOT SEEN /HPF (0-5); WBC,URINE NOT SEEN /HPF (0-5)
[2023-08-14] MEDS ORDERED: Lactated Ringers 1,000 ML IV STA (21:45)
[2023-08-14] MEDS ORDERED: Acetaminophen 325 MG Tab PO PRN (21:45)
[2023-08-14] MEDS ORDERED: LORazepam 2 MG/ML SDV IVPUSH PRN (21:45)
[2023-08-14] MEDS ORDERED: Ondansetron 4 MG/2 ML SDV IV PRN (21:45)
[2023-08-14] MEDS ORDERED: Morphine 2 MG/ML SYRINGE IVPUSH PRN (21:45)
[2023-08-14] MEDS ORDERED: Promethazine 12.5 MG in Sodium Chloride 0.9% 50 ML IV PRN (21:45)
[2023-08-14] MEDS ORDERED: methylPREDNISolone Sodium Succinate 125 MG/2 ML SDV IVPUSH SCH (22:00)
[2023-08-14] MEDS: Lisinopril 20 MG Tab PO SCH (22:05)
[2023-08-15 07:33] LABS: BASOPHILS ABSOLUTE AUTO 0.01 10^3/uL (0.00-0.50); BASOPHILS PERCENT AUTO 0.1 % (0-1); EOSINOPHILS ABSOLUTE AUTO 0.01 10^3/uL (0.00-1.50); EOSINOPHILS PERCENT AUTO 0.1 % (0-6); HEMATOCRIT 45.1 % (42.0-52.0); HEMOGLOBIN 15.9 g/dL (14.0-18.0); IMMATURE GRAN ABSOLUTE AUTO 0.03 10^3/uL (0.00-0.49); IMMATURE GRAN PERCENT AUTO 0.3 % (0.0-4.9); LYMPHOCYTES ABSOLUTE AUTO 0.62 10^3/uL (0.60-5.00); LYMPHOCYTES PERCENT AUTO 5.7 % (24-44); MEAN CORPUSCULAR HEMOGLOBIN 32.6 pg (27.0-32.0); MEAN CORPUSCULAR HGB CONC 35.3 g/dL (32.0-36.0); MEAN CORPUSCULAR VOLUME 92.6 fL (83.0-97.0); MONOCYTES ABSOLUTE AUTO 0.07 10^3/uL (0.00-1.50); MONOCYTES PERCENT AUTO 0.6 % (0-10); NEUTROPHILS ABSOLUTE AUTO 10.19 x10^3/uL (1.80-8.00); NEUTROPHILS PERCENT AUTO 93.2 % (41-71); PLATELET COUNT,PLT 382 10^3/uL (150-400); RED BLOOD CELL COUNT 4.87 x10^6/uL (4.50-6.00); WHITE BLOOD CELL COUNT,WBC 10.9 10^3/uL (4.0-11.0)
[2023-08-15 07:35] LABS: CALCIUM 9.2 mg/dL (8.4-10.1); CREATININE 1.1 mg/dL (0.7-1.3); EST CRCL DRUG DOSING (CG) 72.31 mL/min; POTASSIUM,K 4.1 mEq/L (3.5-5.0)
[2023-08-15] MEDS ORDERED: LORazepam 0.5 MG Tab PO PRN (08:23)
[2023-08-15] MEDS: Lisinopril 20 MG Tab PO SCH (08:33)
[2023-08-15 13:58] VITALS: BP 130/74; PULSE 88
[2023-08-16] MEDS ORDERED: Pantoprazole 40 MG Tab.CR PO SCH (07:00)
== END 2023-08-15 13:15 | disposition home or self-care (01) ==
LOC: CC.ED 19:25 → CC.MS 21:32 → UNDOADMOB 21:32 → CC.MS 21:39
PROVIDERS: ADMIT Nurse Practitioner; ATTEND Nurse Practitioner
DX: K52.9 Noninfective gastroenteritis and colitis, unspecified (principal); R10.84 Generalized abdominal pain; F10.930 Alcohol use, unspecified with withdrawal, uncomplicated; I10 Essential (primary) hypertension; K21.9 Gastro-esophageal reflux disease without esophagitis; F41.9 Anxiety disorder, unspecified; F32.A Depression, unspecified; Z88.1 Allergy status to other antibiotic agents; Z79.899 Other long term (current) drug therapy
CPT/HCPCS: 36415; 71046; 74177; 80048; 80053; 81001; 83690; 83735; 84484; 85025; 93005; 93010; 96361; 96365; 96374; 96375; 96376; 99285-25; A9270-GY; G0378; J2060; J2405; J2550; J2930; J3490; J7030; J7120; Q9967

== ENCOUNTER 2023-09-26 17:18 | Emergency (ER) | payer MEDICAID ==
[2023-09-26 17:29] VITALS: BP 163/107; PULSE 123
[2023-09-26] MEDS: Diphtheria,Pertussis(Acell),Tetanus Vaccine 0.5 ML Syringe IM ONE (18:03)
[2023-09-26] MEDS: Lidocaine 1% with EPINEPHrine 1:100,000 10 ML MDV INJECT ONE (19:05)
== END 2023-09-26 18:35 | disposition left against medical advice (07) ==
LOC: CC.ED 17:18
DX: S01.112A Laceration without foreign body of left eyelid and periocular area, initial encounter (principal); I10 Essential (primary) hypertension; K21.9 Gastro-esophageal reflux disease without esophagitis; Z88.1 Allergy status to other antibiotic agents; Z91.018 Allergy to other foods; W01.198A Fall on same level from slipping, tripping and stumbling with subsequent striking against other object, initial encounter; Z79.899 Other long term (current) drug therapy; Z23 Encounter for immunization
CPT/HCPCS: 12013; 70450; 90471; 90715; 99283; 99283-25; J3490

== ENCOUNTER 2023-12-21 20:44 | Emergency (ER) | payer MEDICAID ==
[2023-12-21 20:48] VITALS: BP 149/91; PULSE 114
[2023-12-21] MEDS: methylPREDNISolone Sodium Succinate 40 MG/1 ML SDV IM ONE (21:36)
== END 2023-12-21 21:45 | disposition home or self-care (01) ==
LOC: CC.ED 20:44
DX: J06.9 Acute upper respiratory infection, unspecified (principal); I10 Essential (primary) hypertension; K21.9 Gastro-esophageal reflux disease without esophagitis; Z91.018 Allergy to other foods; Z88.8 Allergy status to other drugs, medicaments and biological substances; Z79.899 Other long term (current) drug therapy
CPT/HCPCS: 87804; 96372; 99283; J2920; U0002

== ENCOUNTER 2024-03-31 09:03 | Emergency (ER) | payer MEDICAID ==
[2024-03-31 09:25] VITALS: PULSE 114
[2024-03-31] MEDS: Orphenadrine 60 MG/2 ML Inj IM ONE (09:35)
[2024-03-31 11:31] VITALS: BP 161/102
== END 2024-03-31 10:34 | disposition home or self-care (01) ==
LOC: SUPCPDRO 09:03 → CC.ED 09:03
DX: S16.1XXA Strain of muscle, fascia and tendon at neck level, initial encounter (principal); I10 Essential (primary) hypertension; F17.210 Nicotine dependence, cigarettes, uncomplicated; Z91.018 Allergy to other foods; Z88.1 Allergy status to other antibiotic agents; Z79.899 Other long term (current) drug therapy; W18.39XA Other fall on same level, initial encounter
CPT/HCPCS: 72040; 96372; 99284; J2360

== ENCOUNTER 2024-04-23 20:41 | Emergency (ER) | payer MEDICAID ==
[2024-04-23] MEDS: Amoxicillin 500 MG Cap PO ONE (21:54)
[2024-04-23 22:50] VITALS: BP 139/93; PULSE 100
== END 2024-04-23 22:00 | disposition home or self-care (01) ==
LOC: CC.ED 20:41
DX: J01.10 Acute frontal sinusitis, unspecified (principal); I10 Essential (primary) hypertension; K21.9 Gastro-esophageal reflux disease without esophagitis; Z91.018 Allergy to other foods; Z88.1 Allergy status to other antibiotic agents; Z79.899 Other long term (current) drug therapy
CPT/HCPCS: 99283; A9270-GY

== ENCOUNTER 2024-05-23 15:50 | Emergency (ER) | payer MEDICAID ==
[2024-05-23 15:58] VITALS: BP 139/95; PULSE 116
== END 2024-05-23 17:00 ==
LOC: CC.ED 15:50
DX: T85.9XXA Unspecified complication of internal prosthetic device, implant and graft, initial encounter (principal); I10 Essential (primary) hypertension; Z91.018 Allergy to other foods; Z88.1 Allergy status to other antibiotic agents; Z88.8 Allergy status to other drugs, medicaments and biological substances; Z79.899 Other long term (current) drug therapy
CPT/HCPCS: 99283

== ENCOUNTER 2024-11-06 21:45 | Observation (INO) | payer MEDICAID, OTHER ==
[2024-11-06 22:34] LABS: BASOPHILS ABSOLUTE AUTO 0.06 10^3/uL (0.00-0.50); BASOPHILS PERCENT AUTO 0.7 % (0-1); EOSINOPHILS ABSOLUTE AUTO 0.22 10^3/uL (0.00-1.50); EOSINOPHILS PERCENT AUTO 2.4 % (0-6); HEMATOCRIT 41.4 % (42.0-52.0); HEMOGLOBIN 14.2 g/dL (14.0-18.0); IMMATURE GRAN ABSOLUTE AUTO 0.01 10^3/uL (0.00-0.49); IMMATURE GRAN PERCENT AUTO 0.1 % (0.0-4.9); LYMPHOCYTES ABSOLUTE AUTO 2.34 10^3/uL (0.60-5.00); LYMPHOCYTES PERCENT AUTO 25.4 % (24-44); MEAN CORPUSCULAR HEMOGLOBIN 29.1 pg (27.0-32.0); MEAN CORPUSCULAR HGB CONC 34.3 g/dL (32.0-36.0); MEAN CORPUSCULAR VOLUME 84.8 fL (83.0-97.0); MONOCYTES ABSOLUTE AUTO 0.49 10^3/uL (0.00-1.50); MONOCYTES PERCENT AUTO 5.3 % (0-10); NEUTROPHILS ABSOLUTE AUTO 6.08 x10^3/uL (1.80-8.00); NEUTROPHILS PERCENT AUTO 66.1 % (41-71); PLATELET COUNT,PLT 341 10^3/uL (150-400); RED BLOOD CELL COUNT 4.88 x10^6/uL (4.50-6.00); WHITE BLOOD CELL COUNT,WBC 9.2 10^3/uL (4.0-11.0)
[2024-11-06 22:46] LABS: APPEARANCE,URINE CLEAR (CLEAR); BILIRUBIN,URINE NEGATIVE (NEGATIVE); COLOR,URINE YELLOW (YELLOW); GLUCOSE,URINE NEGATIVE (NEGATIVE); KETONES,URINE NEGATIVE (NEGATIVE); LEUKOCYTE ESTERASE,URINE NEGATIVE (NEGATIVE); NITRITE,URINE NEGATIVE (NEGATIVE); OCCULT BLOOD,URINE NEGATIVE (NEGATIVE); PH,URINE 5.5 (4.5-8.0); PROTEIN,URINE NEGATIVE (NEGATIVE); UROBILINOGEN,URINE 0.2 EU/dL (0.2-1.0)
[2024-11-06 22:47] LABS: AMPHETAMINES,URINE NEGATIVE (NEGATIVE); BARBITURATES,URINE NEGATIVE (NEGATIVE); BENZODIAZEPINE,URINE NEGATIVE (NEGATIVE); MDMA (ECSTASY), URINE NEGATIVE (NEGATIVE); METHADONE,URINE NEGATIVE (NEGATIVE); METHAMPHETAMINES,URINE NEGATIVE (NEGATIVE); OPIATES,URINE NEGATIVE (NEGATIVE); OXYCODONE,URINE NEGATIVE (NEGATIVE); PHENCYCLIDINE,URINE NEGATIVE (NEGATIVE); TCA,URINE NEGATIVE (NEGATIVE)
[2024-11-06 22:50] LABS: ALANINE AMINOTRANSFERASE,ALT 224 U/L (12-78); ALBUMIN 4.5 g/dL (3.4-5.0); ALKALINE PHOSPHATASE 113 U/L (46-116); ASPARTATE AMNIOTRANSFERASE,AST 138 U/L (15-37); BILIRUBIN TOTAL 0.7 mg/dL (0.0-1.0); BLOOD UREA NITROGEN,BUN 6 mg/dL (7-18); CALCIUM 9.2 mg/dL (8.4-10.1); CARBON DIOXIDE,CO2 23 mmol/L (21-32); CREATININE 0.8 mg/dL (0.7-1.3); GLUCOSE RANDOM 102 mg/dL (75-99); PROTEIN TOTAL,TP 8.6 g/dL (6.4-8.2)
[2024-11-06 22:59] LABS: C-REACTIVE PROTEIN < 0.50 mg/dL (<=0.50); CHLORIDE,CL 89 mEq/L (98-106); ESTIMATED GFR 101 mL/min (>=60); POTASSIUM,K 4.2 mEq/L (3.5-5.0); SODIUM,NA 126 mEq/L (136-145)
[2024-11-06 23:05] LABS: ETHANOL BLOOD MEDICAL 424 mg/dL (0-3)
[2024-11-06] MEDS: Sodium Chloride 1 GM Tab PO ONE (23:06)
[2024-11-06] MEDS ORDERED: Sodium Chloride 0.9% 10 ML Syringe FLUSH PRN (23:44)
[2024-11-07] MEDS ORDERED: Ondansetron 4 MG/2 ML SDV IV PRN (00:41)
[2024-11-07] MEDS ORDERED: Ondansetron 4 MG Tab.DIS PO PRN (00:41)
[2024-11-07] MEDS: Sodium Chloride 0.9% 1,000 ML IV SCH (01:05)
[2024-11-07] MEDS: LORazepam 0.5 MG Tab PO PRN (01:05)
[2024-11-07] MEDS: Folic Acid 1 MG, Multivitamins 1 TAB, Thiamine 100 MG, Magnesium Oxide 400 MG PO ONE ×2 (01:37→02:16)
[2024-11-07] MEDS ORDERED: Lisinopril 20 MG Tab PO SCH (08:00)
[2024-11-07 11:24] LABS: BASOPHILS ABSOLUTE AUTO 0.08 10^3/uL (0.00-0.50); BASOPHILS PERCENT AUTO 1.2 % (0-1); EOSINOPHILS ABSOLUTE AUTO 0.69 10^3/uL (0.00-1.50); HEMATOCRIT 36.9 % (42.0-52.0); HEMOGLOBIN 12.4 g/dL (14.0-18.0); IMMATURE GRAN ABSOLUTE AUTO 0.01 10^3/uL (0.00-0.49); IMMATURE GRAN PERCENT AUTO 0.1 % (0.0-4.9); LYMPHOCYTES ABSOLUTE AUTO 1.93 10^3/uL (0.60-5.00); LYMPHOCYTES PERCENT AUTO 27.9 % (24-44); MEAN CORPUSCULAR HEMOGLOBIN 28.9 pg (27.0-32.0); MEAN CORPUSCULAR HGB CONC 33.6 g/dL (32.0-36.0); MONOCYTES ABSOLUTE AUTO 0.61 10^3/uL (0.00-1.50); MONOCYTES PERCENT AUTO 8.8 % (0-10); PLATELET COUNT,PLT 307 10^3/uL (150-400); RED BLOOD CELL COUNT 4.29 x10^6/uL (4.50-6.00); WHITE BLOOD CELL COUNT,WBC 6.9 10^3/uL (4.0-11.0)
[2024-11-07] MEDS: Lisinopril 20 MG Tab PO SCH (11:29)
[2024-11-07] MEDS: Sodium Chloride 1 GM Tab PO SCH (11:29)
[2024-11-07 11:30] VITALS: BP 138/88
[2024-11-07 11:32] VITALS: PULSE 84
[2024-11-07 11:37] LABS: ALBUMIN 3.6 g/dL (3.4-5.0); BILIRUBIN TOTAL 0.8 mg/dL (0.0-1.0); CREATININE 0.8 mg/dL (0.7-1.3); EST CRCL DRUG DOSING (CG) 98.19 mL/min; POTASSIUM,K 4.5 mEq/L (3.5-5.0); PROTEIN TOTAL,TP 7.1 g/dL (6.4-8.2)
== END 2024-11-07 15:42 | disposition home or self-care (01) ==
LOC: CC.ED 21:45 → CC.MS 11-07 00:05
PROVIDERS: ADMIT Nurse Practitioner Family; ATTEND Nurse Practitioner Family
DX: F10.920 Alcohol use, unspecified with intoxication, uncomplicated (principal); F33.2 Major depressive disorder, recurrent severe without psychotic features; R45.851 Suicidal ideations; E87.1 Hypo-osmolality and hyponatremia; R94.5 Abnormal results of liver function studies; I10 Essential (primary) hypertension; Z88.8 Allergy status to other drugs, medicaments and biological substances; Z79.899 Other long term (current) drug therapy; Z91.018 Allergy to other foods
CPT/HCPCS: 36415; 80053; 80305-QW; 80307; 81003; 83735; 85025; 86140; 96360; 96361; 99285; A9270-GY; G0378; J7030

== ENCOUNTER 2025-01-06 15:51 | Emergency (ER) | payer OTHER ==
[2025-01-06 16:12] LABS: BASOPHILS ABSOLUTE AUTO 0.05 10^3/uL (0.00-0.50); BASOPHILS PERCENT AUTO 0.5 % (0-1); EOSINOPHILS ABSOLUTE AUTO 0.36 10^3/uL (0.00-1.50); EOSINOPHILS PERCENT AUTO 3.3 % (0-6); HEMATOCRIT 38.9 % (42.0-52.0); HEMOGLOBIN 13.4 g/dL (14.0-18.0); IMMATURE GRAN ABSOLUTE AUTO 0.04 10^3/uL (0.00-0.49); IMMATURE GRAN PERCENT AUTO 0.4 % (0.0-4.9); LYMPHOCYTES ABSOLUTE AUTO 1.89 10^3/uL (0.60-5.00); LYMPHOCYTES PERCENT AUTO 17.3 % (24-44); MEAN CORPUSCULAR HEMOGLOBIN 31.8 pg (27.0-32.0); MEAN CORPUSCULAR HGB CONC 34.4 g/dL (32.0-36.0); MEAN CORPUSCULAR VOLUME 92.4 fL (83.0-97.0); MONOCYTES ABSOLUTE AUTO 0.84 10^3/uL (0.00-1.50); MONOCYTES PERCENT AUTO 7.7 % (0-10); NEUTROPHILS ABSOLUTE AUTO 7.74 x10^3/uL (1.80-8.00); NEUTROPHILS PERCENT AUTO 70.8 % (41-71); PLATELET COUNT,PLT 287 10^3/uL (150-400); RED BLOOD CELL COUNT 4.21 x10^6/uL (4.50-6.00); WHITE BLOOD CELL COUNT,WBC 10.9 10^3/uL (4.0-11.0)
[2025-01-06 16:13] LABS: APPEARANCE,URINE CLEAR (CLEAR); BILIRUBIN,URINE NEGATIVE (NEGATIVE); COLOR,URINE LIGHT YELLOW (YELLOW); GLUCOSE,URINE NEGATIVE (NEGATIVE); KETONES,URINE NEGATIVE (NEGATIVE); LEUKOCYTE ESTERASE,URINE NEGATIVE (NEGATIVE); NITRITE,URINE NEGATIVE (NEGATIVE); OCCULT BLOOD,URINE NEGATIVE (NEGATIVE); PH,URINE 5.5 (4.5-8.0); PROTEIN,URINE NEGATIVE (NEGATIVE); UROBILINOGEN,URINE 0.2 EU/dL (0.2-1.0)
[2025-01-06 16:14] LABS: AMPHETAMINES,URINE NEGATIVE (NEGATIVE); BARBITURATES,URINE NEGATIVE (NEGATIVE); BENZODIAZEPINE,URINE NEGATIVE (NEGATIVE); MDMA (ECSTASY), URINE NEGATIVE (NEGATIVE); METHADONE,URINE NEGATIVE (NEGATIVE); METHAMPHETAMINES,URINE NEGATIVE (NEGATIVE); OPIATES,URINE NEGATIVE (NEGATIVE); OXYCODONE,URINE NEGATIVE (NEGATIVE); PHENCYCLIDINE,URINE NEGATIVE (NEGATIVE); TCA,URINE NEGATIVE (NEGATIVE)
[2025-01-06 16:29] LABS: ALANINE AMINOTRANSFERASE,ALT 102 U/L (12-78); ALKALINE PHOSPHATASE 102 U/L (46-116); ASPARTATE AMNIOTRANSFERASE,AST 62 U/L (15-37); BILIRUBIN TOTAL 0.8 mg/dL (0.0-1.0); BLOOD UREA NITROGEN,BUN 6 mg/dL (7-18); CARBON DIOXIDE,CO2 27 mmol/L (21-32); CHLORIDE,CL 90 mEq/L (98-106); CREATININE 0.8 mg/dL (0.7-1.3); GLUCOSE RANDOM 117 mg/dL (75-99); POTASSIUM,K 4.3 mEq/L (3.5-5.0); PROTEIN TOTAL,TP 8.2 g/dL (6.4-8.2); SODIUM,NA 128 mEq/L (136-145)
[2025-01-06 16:30] LABS: ESTIMATED GFR 101 mL/min (>=60)
[2025-01-06 16:31] LABS: ETHANOL BLOOD MEDICAL 431 mg/dL (0-3)
[2025-01-06 16:41] VITALS: BP 158/99; PULSE 122
== END 2025-01-06 17:40 ==
LOC: CC.ED 15:51
DX: F10.220 Alcohol dependence with intoxication, uncomplicated (principal); F33.2 Major depressive disorder, recurrent severe without psychotic features; F41.9 Anxiety disorder, unspecified; I10 Essential (primary) hypertension; M54.9 Dorsalgia, unspecified; Z91.018 Allergy to other foods; Z88.1 Allergy status to other antibiotic agents
CPT/HCPCS: 36415; 71046; 80053; 80305-QW; 80307; 81003; 83735; 84484; 85025; 93005; 99285

== ENCOUNTER 2025-02-12 16:07 | Emergency (ER) | payer OTHER ==
[2025-02-12 16:39] LABS: BASOPHILS ABSOLUTE AUTO 0.02 10^3/uL (0.00-0.50); BASOPHILS PERCENT AUTO 0.1 % (0-1); EOSINOPHILS ABSOLUTE AUTO 0.03 10^3/uL (0.00-1.50); EOSINOPHILS PERCENT AUTO 0.2 % (0-6); HEMATOCRIT 33.4 % (42.0-52.0); HEMOGLOBIN 11.8 g/dL (14.0-18.0); IMMATURE GRAN ABSOLUTE AUTO 0.06 10^3/uL (0.00-0.49); IMMATURE GRAN PERCENT AUTO 0.3 % (0.0-4.9); LYMPHOCYTES ABSOLUTE AUTO 1.85 10^3/uL (0.60-5.00); LYMPHOCYTES PERCENT AUTO 10.4 % (24-44); MEAN CORPUSCULAR HEMOGLOBIN 33.5 pg (27.0-32.0); MEAN CORPUSCULAR HGB CONC 35.3 g/dL (32.0-36.0); MEAN CORPUSCULAR VOLUME 94.9 fL (83.0-97.0); MONOCYTES ABSOLUTE AUTO 1.55 10^3/uL (0.00-1.50); MONOCYTES PERCENT AUTO 8.7 % (0-10); NEUTROPHILS ABSOLUTE AUTO 14.31 x10^3/uL (1.80-8.00); NEUTROPHILS PERCENT AUTO 80.3 % (41-71); PLATELET COUNT,PLT 256 10^3/uL (150-400); RED BLOOD CELL COUNT 3.52 x10^6/uL (4.50-6.00); WHITE BLOOD CELL COUNT,WBC 17.8 10^3/uL (4.0-11.0)
[2025-02-12 16:55] LABS: ALBUMIN 3.8 g/dL (3.4-5.0); C-REACTIVE PROTEIN 1.16 mg/dL (<=0.50); CREATININE 0.9 mg/dL (0.7-1.3); EST CRCL DRUG DOSING (CG) 81.6 mL/min; POTASSIUM,K 4.4 mEq/L (3.5-5.0); PROTEIN TOTAL,TP 7.2 g/dL (6.4-8.2)
[2025-02-12] MEDS: LORazepam 0.5 MG Tab PO ONE ×3 (17:00→17:01)
[2025-02-12] MEDS: Sodium Chloride 0.9% 1,000 ML IV ONE (17:06)
[2025-02-12 18:33] VITALS: BP 153/97; PULSE 108
== END 2025-02-12 19:16 | disposition home or self-care (01) ==
LOC: CC.ED 16:07
DX: F41.9 Anxiety disorder, unspecified (principal); F10.10 Alcohol abuse, uncomplicated; I10 Essential (primary) hypertension; F17.210 Nicotine dependence, cigarettes, uncomplicated; Z91.018 Allergy to other foods; Z88.1 Allergy status to other antibiotic agents; Z88.8 Allergy status to other drugs, medicaments and biological substances; Z79.899 Other long term (current) drug therapy; Y90.9 Presence of alcohol in blood, level not specified
CPT/HCPCS: 36415; 70450; 71046; 80053; 80307; 84484; 85025; 86140; 93005; 96360; 96361; 99285-25; A9270-GY; J7030

== ENCOUNTER 2025-02-21 02:41 | Emergency (ER) | payer OTHER ==
[2025-02-21] MEDS ORDERED: LORazepam 2 MG/ML SDV IVPUSH PRN (03:14)
[2025-02-21] MEDS: Folic Acid 1 MG, Multivitamins 1 TAB, Thiamine 100 MG, Magnesium Oxide 400 MG PO ONE (03:32)
[2025-02-21] MEDS: Sodium Chloride 0.9% 1,000 ML IV ONE (03:32)
[2025-02-21 03:33] LABS: BASOPHILS ABSOLUTE AUTO 0.04 10^3/uL (0.00-0.50); BASOPHILS PERCENT AUTO 0.5 % (0-1); EOSINOPHILS ABSOLUTE AUTO 0.33 10^3/uL (0.00-1.50); EOSINOPHILS PERCENT AUTO 3.9 % (0-6); HEMATOCRIT 33.6 % (42.0-52.0); IMMATURE GRAN ABSOLUTE AUTO 0.03 10^3/uL (0.00-0.49); IMMATURE GRAN PERCENT AUTO 0.4 % (0.0-4.9); LYMPHOCYTES ABSOLUTE AUTO 1.89 10^3/uL (0.60-5.00); LYMPHOCYTES PERCENT AUTO 22.3 % (24-44); MEAN CORPUSCULAR HEMOGLOBIN 33.3 pg (27.0-32.0); MEAN CORPUSCULAR HGB CONC 35.7 g/dL (32.0-36.0); MEAN CORPUSCULAR VOLUME 93.3 fL (83.0-97.0); MONOCYTES ABSOLUTE AUTO 0.79 10^3/uL (0.00-1.50); MONOCYTES PERCENT AUTO 9.3 % (0-10); NEUTROPHILS ABSOLUTE AUTO 5.41 x10^3/uL (1.80-8.00); NEUTROPHILS PERCENT AUTO 63.6 % (41-71); PLATELET COUNT,PLT 233 10^3/uL (150-400); WHITE BLOOD CELL COUNT,WBC 8.5 10^3/uL (4.0-11.0)
[2025-02-21 03:48] LABS: ACETAMINOPHEN < 2 ug/mL (10-30); ALANINE AMINOTRANSFERASE,ALT 92 U/L (12-78); ALBUMIN 3.9 g/dL (3.4-5.0); ALKALINE PHOSPHATASE 102 U/L (46-116); ASPARTATE AMNIOTRANSFERASE,AST 62 U/L (15-37); BILIRUBIN TOTAL 0.7 mg/dL (0.0-1.0); BLOOD UREA NITROGEN,BUN 11 mg/dL (7-18); C-REACTIVE PROTEIN 1.45 mg/dL (<=0.50); CALCIUM 8.9 mg/dL (8.4-10.1); CARBON DIOXIDE,CO2 26 mmol/L (21-32); CHLORIDE,CL 88 mEq/L (98-106); CREATININE 0.8 mg/dL (0.7-1.3); ESTIMATED GFR 101 mL/min (>=60); MAGNESIUM 1.7 mg/dL (1.8-2.4); POTASSIUM,K 4.3 mEq/L (3.5-5.0); PROTEIN TOTAL,TP 7.9 g/dL (6.4-8.2); SODIUM,NA 126 mEq/L (136-145)
[2025-02-21 03:51] LABS: ETHANOL BLOOD MEDICAL 384 mg/dL (0-3)
[2025-02-21 03:55] LABS: APPEARANCE,URINE CLEAR (CLEAR); BILIRUBIN,URINE NEGATIVE (NEGATIVE); COLOR,URINE YELLOW (YELLOW); GLUCOSE,URINE NEGATIVE (NEGATIVE); KETONES,URINE NEGATIVE (NEGATIVE); LEUKOCYTE ESTERASE,URINE NEGATIVE (NEGATIVE); NITRITE,URINE NEGATIVE (NEGATIVE); OCCULT BLOOD,URINE NEGATIVE (NEGATIVE); PH,URINE 5.5 (4.5-8.0); PROTEIN,URINE NEGATIVE (NEGATIVE); UROBILINOGEN,URINE 0.2 EU/dL (0.2-1.0)
[2025-02-21 03:56] LABS: AMPHETAMINES,URINE NEGATIVE (NEGATIVE); BARBITURATES,URINE NEGATIVE (NEGATIVE); BENZODIAZEPINE,URINE NEGATIVE (NEGATIVE); MDMA (ECSTASY), URINE NEGATIVE (NEGATIVE); METHADONE,URINE NEGATIVE (NEGATIVE); METHAMPHETAMINES,URINE NEGATIVE (NEGATIVE); OPIATES,URINE NEGATIVE (NEGATIVE); OXYCODONE,URINE NEGATIVE (NEGATIVE); PHENCYCLIDINE,URINE NEGATIVE (NEGATIVE); TCA,URINE NEGATIVE (NEGATIVE)
[2025-02-21] MEDS: Sodium Chloride 0.9% 1,000 ML IV SCH (04:47)
[2025-02-21 08:07] LABS: GLUCOSE RANDOM 94 mg/dL (75-99)
[2025-02-21 08:37] VITALS: BP 132/52; PULSE 78
== END 2025-02-21 09:55 | disposition home or self-care (01) ==
LOC: CC.ED 02:41
DX: F10.129 Alcohol abuse with intoxication, unspecified (principal); I10 Essential (primary) hypertension; Z88.8 Allergy status to other drugs, medicaments and biological substances; Z91.018 Allergy to other foods; Z79.899 Other long term (current) drug therapy
CPT/HCPCS: 36415; 80053; 80143; 80179; 80305-QW; 80307; 81003; 83735; 85025; 86140; 99285; A9270-GY; J7030

== ENCOUNTER 2025-07-08 22:49 | Emergency (ER) | payer OTHER ==
[2025-07-08 23:24] LABS: BASOPHILS ABSOLUTE AUTO 0.05 10^3/uL (0.00-0.50); BASOPHILS PERCENT AUTO 0.5 % (0-1); EOSINOPHILS ABSOLUTE AUTO 0.57 10^3/uL (0.00-1.50); EOSINOPHILS PERCENT AUTO 5.6 % (0-6); IMMATURE GRAN ABSOLUTE AUTO 0.02 10^3/uL (0.00-0.49); IMMATURE GRAN PERCENT AUTO 0.2 % (0.0-4.9); LYMPHOCYTES ABSOLUTE AUTO 2.72 10^3/uL (0.60-5.00); LYMPHOCYTES PERCENT AUTO 26.7 % (24-44); MONOCYTES ABSOLUTE AUTO 0.69 10^3/uL (0.00-1.50); MONOCYTES PERCENT AUTO 6.8 % (0-10); NEUTROPHILS ABSOLUTE AUTO 6.15 x10^3/uL (1.80-8.00); NEUTROPHILS PERCENT AUTO 60.2 % (41-71); PLATELET COUNT,PLT 330 10^3/uL (150-400); RED BLOOD CELL COUNT 4.26 x10^6/uL (4.50-6.00); WHITE BLOOD CELL COUNT,WBC 10.2 10^3/uL (4.0-11.0)
[2025-07-08 23:40] LABS: ALANINE AMINOTRANSFERASE,ALT 65 U/L (12-78); ASPARTATE AMNIOTRANSFERASE,AST 48 U/L (15-37); BILIRUBIN TOTAL 0.8 mg/dL (0.0-1.0); BLOOD UREA NITROGEN,BUN 6 mg/dL (7-18); CARBON DIOXIDE,CO2 24 mmol/L (21-32); CHLORIDE,CL 95 mEq/L (98-106); CREATININE 0.8 mg/dL (0.7-1.3); ESTIMATED GFR 101 mL/min (>=60); GLUCOSE RANDOM 119 mg/dL (75-99); POTASSIUM,K 3.5 mEq/L (3.5-5.0); PROTEIN TOTAL,TP 7.5 g/dL (6.4-8.2); SODIUM,NA 132 mEq/L (136-145)
[2025-07-08] MEDS: Orphenadrine 60 MG/2 ML Inj IM ONE (23:58)
[2025-07-09 00:50] VITALS: BP 130/84; PULSE 102
== END 2025-07-09 00:10 | disposition home or self-care (01) ==
LOC: CC.ED 22:49
DX: S29.011A Strain of muscle and tendon of front wall of thorax, initial encounter (principal); I10 Essential (primary) hypertension; K21.9 Gastro-esophageal reflux disease without esophagitis; Z91.018 Allergy to other foods; Z88.1 Allergy status to other antibiotic agents; Z79.899 Other long term (current) drug therapy; X50.1XXA Overexertion from prolonged static or awkward postures, initial encounter; Y93.01 Activity, walking, marching and hiking
CPT/HCPCS: 36415; 71046; 80053; 83690; 83735; 84484; 85025; 85730; 87426-QW; 93005; 96372; 99285; A9270-GY; J2360